=== PATIENT | male | born 1950 | race Caucasian/White ===

== ENCOUNTER 2019-07-30 11:24 | Inpatient (IN) | payer OTHER ==
[~2019-07-30] VITALS: Ht 172.7 cm; Wt 92.0 kg
[2019-07-30 11:25] VITALS: BP 124/77
[2019-07-30 12:09] LABS: ABSOLUTE NEUTROPHILS 3.1 thou/uL (1.4-8.2); BASOPHILS 0.9 % (0.0-2.0); EOSINOPHILS 1.3 % (0.0-3.0); HEMATOCRIT 43.2 % (42.0-52.0); HEMOGLOBIN 14.6 gm/dL (14.0-18.0); LYMPHOCYTES 31.6 % (24.0-44.0); MCH 30.2 pg (26.0-34.0); MCHC 33.7 g/dL (28.0-37.0); MCV 89.7 fL (80.0-100.0); MONOCYTES 8.6 % (1.0-8.0); PLATELET COUNT 157 thou/uL (150-400); POLYS 57.6 % (36.0-66.0); RBC 4.82 mil/uL (4.50-6.00); WBC 5.3 thou/uL (4.0-11.0)
[2019-07-30 12:22] LABS: ANION GAP 10 mmol/L (7-16); BUN 8 mg/dL (7-18); CHLORIDE 102 mmol/L (98-107); CO2 26 mmol/L (21-32); CREATININE 0.8 mg/dL (0.7-1.3); GLUCOSE 93 mg/dL (74-106); POTASSIUM 4.2 mmol/L (3.5-5.1); SODIUM 138 mmol/L (136-145)
[2019-07-30 12:27] LABS: ALBUMIN 4.1 g/dL (3.4-5.0); DIRECT BILIRUBIN 0.2 mg/dL (<0.1-0.2); LIPASE 46 U/L (73-393); SGOT 31 U/L (15-37); SGPT 38 U/L (30-65); TOTAL BILIRUBIN 1.2 mg/dL (<0.1-1.0); TOTAL PROTEIN 7.6 g/dL (6.4-8.2)
[2019-07-30 12:28] LABS: SALICYLATE < 2.8 mg/dL (2.8-20.0)
--- NOTE | 2019-07-30 13:48 | NUR ---
PT. TOLERATED CARDIOVERSION. PT. DOCUMENTATION TO BE FOUND WITH MODERATE SEDATION CHARTING.
[2019-07-30 14:01] LABS: URINE BILIRUBIN NEGATIVE (Negative); URINE BLOOD NEGATIVE (Negative); URINE CLARITY CLEAR; URINE COLOR YELLOW; URINE GLUCOSE-RANDOM* NEGATIVE (Negative); URINE KETONES NEGATIVE (Negative); URINE LEUKOCYTES-REFLEX NEGATIVE (Negative); URINE NITRITE-REFLEX NEGATIVE (Negative); URINE PROTEIN (DIPSTICK) NEGATIVE (Negative); URINE UROBILINOGEN 0.2 E.U./dl (0.2-1.0)
[2019-07-30 14:12] LABS: AMP/METHAMP Negative (Negative); BARBITURATES Negative (Negative); BENZODIAZEPINES POSITIVE (Negative); COCAINE Negative (Negative); METHADONE Negative (Negative); OPIATES Negative (Negative); PCP Negative (Negative)
[2019-07-30 14:17] VITALS: BP 120/68
[2019-07-30] MEDS ORDERED: ACETAMINOPHEN325 M1 PO (15:43)
[2019-07-30] MEDS ORDERED: ALPRAZOLAM XR3 MG PO ×2 (15:45→15:46)
[2019-07-30] MEDS ORDERED: AMITIZA 24 MCG24 MC1 PO (15:48)
[2019-07-30] MEDS ORDERED: ST. JOSEPH ASPI81 MG PO (15:49)
[2019-07-30] MEDS ORDERED: LIPITOR 20 MG T20 M1 PO (15:50)
[2019-07-30] MEDS ORDERED: COLACE100 MG PO (15:50)
[2019-07-30] MEDS ORDERED: FIBER LAX625 MG PO (15:52)
[2019-07-30] MEDS ORDERED: KETOCONAZOLE15 GM TOP (15:53)
[2019-07-30] MEDS ORDERED: LATANOPROST 0.2.5 ML EA. EYE (15:55)
[2019-07-30] MEDS ORDERED: LEVETIRACETAM500 M1 PO (15:56)
[2019-07-30] MEDS ORDERED: LOPRESSOR50 MG PO (15:59)
[2019-07-30] MEDS ORDERED: OLANZAPINE15 M1 PO (16:01)
[2019-07-30] MEDS ORDERED: ONDANSETRON HCL4 M2 PO (16:03)
[2019-07-30] MEDS ORDERED: PROTONIX40 M2 (16:04)
[2019-07-30] MEDS ORDERED: MIRALAX119 GM PO (16:05)
[2019-07-30] MEDS ORDERED: SERTRALINE HCL100 MG PO (16:06)
[2019-07-30] MEDS ORDERED: THROAT SPRAY177 M1 PO (16:08)
[2019-07-30] MEDS ORDERED: CARAFATE 1 GM TA1 G1 PO ×2 (16:10→16:11)
[2019-07-30] MEDS ORDERED: FLOMAX0.4 MG PO (16:13)
[2019-07-30] MEDS ORDERED: TIMOLOL MALEATE5 M2 EA. EYE (16:14)
[2019-07-30] MEDS ORDERED: TRAMADOL 50 MG50 MG PO (16:16)
[2019-07-30] MEDS ORDERED: TRAZODONE HCL100 MG PO (16:17)
[2019-07-30] MEDS ORDERED: B12 ACTIVE1000 MCG PO (16:19)
[2019-07-30] MEDS ORDERED: OSTERA TABLET1 EAC1 PO (16:20)
[2019-07-30 17:03] VITALS: BP 133/75
--- NOTE | 2019-07-30 18:23 | NUR ---
1730 PATIENT NEW ADMIT FROM ER FOR PANIC ATTACKS AND SOME CONTIPATION PROBLEMS. PATIENT STATES HE HAS LOST HIS INTEREST IN LIFE DUE TO NOT BEING ACTIVE. 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 PATIENT IS NOT VERY ACTIVE AND IS , PATIENT A SEIZURE FOR THE FIRST TIME 3 MONTHS AGO. PATIENT WAS VERY ANXIOUS AND PACED BACK AND FORTH UNTIL THE ATIVAN 0.[address] BLACK. DR LAUREN CAME AND SAW PATIENT AND GAVE ME ORDERS FOR OTHER MEDICATION. PATIENT DECLINED THE ENEMA AND STATES HE WILL WAIT FOR DOCUSATE AT 2100. PATIENT WAS GIVEN ATIVAN 0.5 MG [id number]. PATIENT IS VERY PLEASANT BUT NEEDS ENCOURAGEMENT TO BE MORE ACTIVE AND FIND OUTSIDE THINGS TO DO.
[2019-07-30 20:16] VITALS: BP 95/70
--- NOTE | 2019-07-31 00:31 | NUR ---
Care assumed of patient at 1915: Patient sitting on bed at start of shift. Patient alert and oriented x4. Patient reporting his anxiety as a 03/29. Requesting "that little pill". Educated patient regarding PRN Ativan available. Notified patient he had received previous dose around 1800 and that he could receive it every 6 hours. Patient sitting quietly in bed. No restlessness or obvious signs of anxiety observed. Patient denies pain or discomfort. Denies SI/HI/AH/VH. No s/s of delusional or paranoia behaviors. Patient obsessive about his laxative medication. Education provided with HS medication administration. Patient received scheduled Miralax and Colace with HS medication. Took HS medication whole without difficulty. Declined HS snack. Patient denies any depression at this time. Patient was able to fall asleep without difficulty. Patient did report to the nurses station around 2230 requesting his PRN Ativan. Notified patient that medication was not due at this time. Nurse offered to speak with patient regarding his anxiety. He politely declined, stated he would go back to bed. Nurse followed up 10 minutes later and patient is sleeping soundly in his bed.
[2019-07-31 11:31] VITALS: BP 122/68
--- NOTE | 2019-07-31 16:59 | NUR ---
ELLIOTT spoke with Yolie, a nurse for [facility]. She said pt has resided at that facility for 1 year, and in that year he has gone to the hospital over 20 times. According to her, his family reports that he drug seeks for especially Xanax. She said his son stopped pt from drug seeking at [facility] and [facility] as a result. He sees Dr. Schafer at [facility]. Pt says that he feels constipated; his med doctor was on the floor so SW and pt relayed that info to her. She said pain brings on his panic attacks. SW team will continue to follow pt during his stay on this unit.
[2019-07-31 20:21] VITALS: BP 104/66
--- NOTE | 2019-07-31 20:31 | NUR ---
HAS BEEN ATTENDING GROUPS WITH PROMPTING THIS SHIFT. USES ROLLER WALKER AND AMBULATING INDEPENDENTLY IN HALLWAYS GAIT STEADY WITH ASSISITVE DEVICE. PREOCCUPIED WITH HAVING A BM STATING "I NEED TWO OF THOSE RED PILLS SHE ONLY GAVE ME ONE LAST NIGHT AND NOTHING HAPPENED. BS X4-ABDOMEN SOFT,NO DISTENSON NOTED DURING AM PHYSICAL EXAM/ASSESSMENT.DR. JOHN NOTIFIED OF REPORTED CONSTIPATION AND LACTULOSE 20GM GIVEN ALONG WITH ALREADY SCHEDULED MIRALAX AND COLACE. INCREASED WATER INTAKE AND AMBULATION IN HALLWAYS ENCOURAGED. DID REPORT 4-5 LOOSE BM'S BY 1930. REPORTING SOME GENERALIZED ABDOMINAL PAIN THIS AM REFUSED TRAMADOL WHEN OFFERED AT 0900 STATING INCREASES HIS CONSTIPATION-TYLENOL 650MG PO PRN ADMINISTERD AT APPROX 1400 WITH VERBALIZED FAIR RESPONSES. DENIES SI/SH/HI-DOES REPORT ANXIETY RATED A 8/9 ON 1-10 SCALE AND ATIVAN 0.5MG GIVEN PO PRN AT APPROX. 0830 AND REPEATED AT 1430 PRN WITH VERBALIZED GOOD RESULTS-ANXIETY RATED A 4 AFTER ADMINISTRATION. APPETITE FAIR.
--- NOTE | 2019-08-01 01:19 | NUR ---
ASSUMED CARE ON 07/31/19 @ 19:20, IN ROOM, LYING IN BED. COOPERATES WITH ASSESSMENT,HRRR, LUNGS CTA, ABD N X 4 Q, REPORTS X4 LOOSE BM AFTER RECEIVING LACTULOSE AT NOON. DENIES SI, HI, AH, VH. ORIENTED X 2 TO PERSON AND DATE. DENIES DEPRESSION, ACKNOWLEDGES ANXIETY, RATES 6/10. AMBULATES WITH A WALKER. BED IN LOW POSITION, WILL CONTINUE TO MONITOR Q 12 MINUTES FOR PATIENT SAFETY.
[2019-08-01 02:48] VITALS: BP 104/66
--- NOTE | 2019-08-01 06:04 | NUR ---
slept 10.4 hours
--- NOTE | 2019-08-01 07:30 | NUR ---
Assumed care of patient this am. Patients affect is blunted. Patient denies pain. Patient denies hi/si. Patient takes medications whole with fluids. Patient ambulates with walker. Patient is concerned about his bowels. Patient states that his anxiety is better. Patient showered this am. Patients assessment shows clear breath sounds, active bowel sounds, and s1 s2 heard with auscultation.
[2019-08-01 08:00] VITALS: BP 148/84
[2019-08-01 09:06] VITALS: BP 148/84
[2019-08-01 19:23] VITALS: BP 124/79
[2019-08-01 22:35] VITALS: BP 124/79
--- NOTE | 2019-08-02 02:50 | NUR ---
1450 AM RESUMMED CARE FROM DAY SHIFT, PATIENT IN DAY ROOM WATCHING TV. PATIENT STARTED TO GET ANXIOUS AROUND MEDICATION TIME, PATIENT TOOK MEDICATION WITHOUT INCIDENCE. PATIENT COOPERATIVE DENIES SI/HI WILL CONTINUE TO MONITOR PATIENT FOR SAFETY AND BEHAVIORS.
[2019-08-02 08:00] VITALS: BP 150/89
--- NOTE | 2019-08-02 11:10 | NUR ---
ELLIOTT faxed updates to [facility] for pt to [phone]. ELLIOTT team will continue to follow pt during his stay on this unit.
--- NOTE | 2019-08-02 11:22 | EKG ---
[facility] [place] [address] ELECTROCARDIOGRAM REPORT Name: GEOFFREY GALLARDO Room #: [facility]- ADM IN M.R.#: [id number] Admission: 07/30/19 Attend Phys: Yasemin Alegre MD Discharge: Date of : 50 Report #: [id number] THIS REPORT FOR: cc: Gianfranco Zavala Ryan D. DO Couchonnal, Luis F. 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
[2019-08-02 13:16] VITALS: BP 150/89
[2019-08-02 19:30] VITALS: BP 124/67
--- NOTE | 2019-08-02 19:39 | NUR ---
Assumed care of patient this am. Patient slightly anxious. Patient denies pain. Patient denies hi/si. Patients affect is flat. Patient requests laxatives for constipation. Patient educated on the use and misuse of laxatives. Patient expresses understanding. Patients assessment shows clear breath sounds, active bowel sounds, and s1 s2 heard with auscultation. Will continue to monitor.
--- NOTE | 2019-08-02 23:48 | NUR ---
ASSUMED CARE ON 08/02/19 @ 19:15, REPORT RECEIVED FROM OFFGOING DAY SHIFT NURSE. SITTING IN THE DAY ROOM WATCHING TV AND SOCIALIZING WITH PEERS. FLAT AFFECT NOTED. COOPERATES WITH ASSESSMENT, VSS, FOCUSED ON CONSTIPATION AND ANXIETY ABOUT MEDICATION. REPORTS CHRONIC PAIN FROM OPEN HEART SURGERY, IN HIS CHEST AND SHOULDER RATED @ 5/10. TYLENOL 650 PROVIDED FOR PAIN @ 2100. COMPLAINS ABOUT CONSTIPATION, ALTHOUGH ACHNOWLEDGES HAVING A BM TODAY, CHARACTERIZES THE BOWEL MOVEMENT A HARD FORMED MUSHY STOOL. PATIENT ASKED TO NOT FLUSH TOILET NEXT TIME HE HAS A BM FOR NURSING STAFF TO EVALUATE, PATIENT AGREED. REPORTS WORRY ABOUT HIS MEDICATIONS. EDUCATION PROVIDED REGARDING NAME OF MEDS AND THEIR USE, PATIENT VERBALIZED UNDERSTANDING. ALSO REPORTED SADNESS, DEPRESSION REGARDING HIS FEAR OF DYING. DENIES SI, HI, A/H, V/H. TOOK MEDS WHOLE WITH WATER, RETIRED TO BED, AND ALLOWED EYEDROPS TO BE INSTILLED. WILL CONTINUE TO MONITOR Q 12 MINUTES FOR PATIENT SAFETY.
[2019-08-03 03:05] VITALS: BP 124/67
--- NOTE | 2019-08-03 06:01 | NUR ---
SLEPT 7.6 HOURS
[2019-08-03 06:59] LABS: ABSOLUTE NEUTROPHILS 2.2 thou/uL (1.4-8.2); BASOPHILS 0.9 % (0.0-2.0); EOSINOPHILS 1.9 % (0.0-3.0); HEMATOCRIT 42.4 % (42.0-52.0); HEMOGLOBIN 14.4 gm/dL (14.0-18.0); LYMPHOCYTES 42.4 % (24.0-44.0); MCH 30.5 pg (26.0-34.0); MCV 89.7 fL (80.0-100.0); MONOCYTES 7.6 % (1.0-8.0); PLATELET COUNT 141 thou/uL (150-400); POLYS 47.2 % (36.0-66.0); RBC 4.72 mil/uL (4.50-6.00); RDW 15.2 % (10.5-14.5); WBC 4.6 thou/uL (4.0-11.0)
[2019-08-03 07:18] LABS: CALCIUM 8.6 mg/dL (8.5-10.1); CREATININE 0.9 mg/dL (0.7-1.3); POTASSIUM 4.2 mmol/L (3.5-5.1); TOTAL BILIRUBIN 0.8 mg/dL (<0.1-1.0); TOTAL PROTEIN 6.9 g/dL (6.4-8.2)
[2019-08-03 08:42] VITALS: BP 150/89
[2019-08-03 10:22] VITALS: BP 133/82
--- NOTE | 2019-08-03 18:02 | NUR ---
1800 RESUMMED CARE FROM OVERNIGHT SHIFT AT 0648, PATIENT UP IN DAY ROOM WAITING FOR BREAKFAST. PATIENT ATE WELL TOOK MEDICATION WITHOUT INCIDENCE, PATIENT DOES ASK ABOUT CONSTIPATION MEDICATION. PATIENT ASKED FOR TYLENOL AND 1630 FOR HEADACHE, TYLENOL WAS GIVEN WITH 1700 MEDICATION. PATIENT QUIET COOPERATIVE, PARTICIPATED IN GROUPS. PATIENT DENIES SI/HI/KASPER AT PRESENT WILL CONTINUE TO MONITOR PATIENT FOR BEHAVIORS AND SAFETY.
[2019-08-03 19:15] VITALS: BP 124/59
--- NOTE | 2019-08-03 23:34 | NUR ---
Care assumed of patient at 1915: Patient sleeping in bed at start of shift. Easily aroused. Poor eye contact made, appears anxious, fixated on needing to have a bowel movement. Patient had a loose BM during the day shift. Patient did report chronic abdominal pain but declined PRN Tylenol available. Educated patient regarding multiple stool softeners received, having multiple loose bowel movements and how it can effect the muscles in his abdomen. Patient educated with HS medication and scheduled Colace administered. Took HS medication with prune juice per his request. Patient alert and oriented to person only. Patient reports anxiety 11/27 due to feeling that he needs to have a BM. Denies depression. Denies SI/HI/AH/VH. Patient declined HS snack. Patient up ad tegan with walker to the bathroom with steady gait and good balance. Patient has isolated self and been withdrawn this evening. Patient encouraged to come to dayroom but declined. Patient asked to sit up in bed for HS medication but would not or could not follow one step direction. Seemed resistant on participating in nursing assessment. Patient has been sleeping most of the shift thus far.
[2019-08-04 07:00] VITALS: BP 122/84
--- NOTE | 2019-08-04 10:35 | NUR ---
ASSUMED CARE AT 0700 THIS MORNING. PT. UP FOR BREAKFAST IN THE DINING ROOM. HE CONTINUES TO BE FOCUSING ON THIS BOWELS. HE STARTED ASKING FOR PRUNE JUICE FOR SNACK. HE TOOK HIS MEDICATIONS WITHOUT DIFFICULTIES. HE AT WELL AND SAT N THE UNIT WATCHING TELEVISION THIS MORNING. HE HAS A BLAND, FLAT AFFECT. HE IS COOPERATIVE THOUGH WITH STAFF. HE DOES NOT SEEM TO TALK TO ANYONE WHILE ON THE UNIT, BEING ISOLATIVE INSTEAD. WILL ONLY INTERACT UPON APROACH ONLY.
[2019-08-04 11:10] VITALS: BP 122/84
[2019-08-04 11:34] VITALS: BP 122/84
[2019-08-04 21:02] VITALS: BP 123/74
--- NOTE | 2019-08-04 23:17 | NUR ---
Care assumed of patient at 1915: Patient seated on couch in dayroom, watching TV, at start of shift. Patient presents with flat affect, depressed mood. Patient alert and oriented x4. Calm, pleasant and cooperative. Denies anxiety or depression. Reports that he was anxious earlier in the day due to having chest pain but he feels much better now. Denies pain or discomfort. Patient interacting with staff and peers. Did not isolate self to his room and bed this shift. Patient has not had any thoughts fixating on bowels this shift. Patient ate 100% HS snack. Took HS medication whole without difficulty. Patient observed smiling once while speaking with a peer. Mood appears to have improved compared to previous nights. Patient able to retire to bed at a reasonable hour and has been resting quietly since.
[2019-08-05 07:36] VITALS: BP 138/78
[2019-08-05 12:34] VITALS: BP 138/78
--- NOTE | 2019-08-05 14:17 | NUR ---
1415 RESUMMED CARE FROM OVERNIGHT SHIFT THIS AM, PATIENT IN DAY ROOM QUIET WAITING FOR BREAKFAST. PATIENT ATE BREAKFAST AND TOOK MEDICATION WITHOUT INCIDENCE. PATIENT COMPLAINED OF HAVING PAIN DOWN HIS LEFT BUTTOCKS TO LOWER LEFT THIGH. I GAVE PATIENT TYLENOL 650 MG FOR PAIN, HE RATES HIS PAIN ABOUT 3. PATIENT PARTICIPATED IN GROUPS QUIET COOPERATIVE, DOES OCCASSIONLY WALKS TO ROOM AND BACK TO DAYROOM. PANTIENT'S ANXIETY IS GETTING BETTER, HE DENIES SI/HI OR AH AT PRESENT. WILL CONTIUE TO MONITOR PATIENT FOR BEHAVIORS AND SAFETY.
[2019-08-05 20:19] VITALS: BP 110/58
--- NOTE | 2019-08-06 05:32 | NUR ---
ASSUMED CARE OF THIS PATIENT AT 1900 FOR FUR STYLIST. AFFECT FLAT, ANXIOUS. MOOD DEPRESSED. TOLD THIS NURSE HE HAD 2 BMS YESTERDAY AND ONE WAS LOOSE. COLACE HELD. THEN WOKE UP ABOUT 5AM AND TOLD STAFF HE HASN'T HAD A BM IN SEVERAL DAYS. SEEMS A LITTLE BOWEL FIXATED. PLEASANT AND COOPERATIVE WITH ASSESSMENT PROCESS AND MEDS. NO APPARENT DISTRESS. WILL CONTINUE TO MONITOR
[2019-08-06 08:44] VITALS: BP 138/75
--- NOTE | 2019-08-06 08:49 | NUR ---
ASSUMED CARE AT 0700 THIS MORNING. PT. DID NOT GET UP FOR BREAKFAST. THIS RN WENT TO PT. ROOM TO GIVE MORNING MEDICATIONS. HE WAS LAYING BED AND REMARKED HE COULD NOT GET UP THIS MORNING HIS JOINTS ARE HURTING. I INFORMED HIM THAT THERE IS GABAPENTIN IN THE MORNING MEDICATIONS AND THIS SHOULD HELP HIM WITH THE PAIN HE CLAIMS HE HAS. HE TOOK THE MEDICATIONS WITHOUT PROBLEMS NOTED. IT IS DIFFICULT TO GIVE HIM THE EYE DROPS. HE SQUINTS HIS EYES HARD BUT WITH PATIENTS CAN DELIVER THE DROPS. HIS MOOD IS CLOSED AND ATTITUDE ARE CLOSED AT THIS TIME. HE IS UNWILLING TO ATTEMPT TO GET UP OR MOVE AROUND. HE STATED HE NEEDED TO UTILIZE THE RESTROOM BUT WHEN THIS SECOND CHEF ATTEMPTED TO GET HIM UP, HE STATED HE IS UNWILLING TO DO THIS.
--- NOTE | 2019-08-06 11:01 | NUR ---
ELLIOTT contacted the director of infection prevention for [facility] to discuss recommendations and d/c. On her vm it says she will not return until 08/07. ELLIOTT contacted norberto Hart for PM. No answer. Lft msg. ELLIOTT faxed updates on pt to PM. SW team will continue to follow pt during his stay on this unit.
[2019-08-06 11:15] VITALS: BP 138/75
[2019-08-06 19:30] VITALS: BP 99/54
--- NOTE | 2019-08-07 05:06 | NUR ---
Assumed care of pt @ 1899. Pt calm et cooperative this shift. Pt in dayroom with peers watching television at beginning of shift. Was given medications whole et took without difficulty @ 1999. Pt retired to bed shortly thereafter. Ambulates the halls ad tegan with steady gait. VSWNL. Health assessment with no abnormalities noted at present time. Denies SI/HI. Currently resting in bed with eyes closed. Will continue to monitor per protocol.
[2019-08-07 09:46] VITALS: BP 99/54
--- NOTE | 2019-08-07 10:07 | NUR ---
ASSUMED CARE AT 0700 THIS MORNING. PT. UP, DRESSED AND ON THE UNIT. HE CONTINUES TO LOOK UNKEMPT. WILL ATTEMPT TO GIVE HIM A SHOWER TODAY. TOOK HIS MEDS WITHOUT PROBLEMS. RECEIVED A CALL FROM ROBERT FROM [facility] ([phone]) FOR AN UPDATE WHICH WAS PROVIEDED TO HER. HE AT WELL THIS MORNING. HE IS COMPLAINING OF THIS ABDOMEN HURTING "A LOT". I WITHHELD HIS MIRALAX DUE TO THIS. HE ALSO REPORTED HAVING 2 OR 3 BM'S ON THE EVENING OF 08/05 AND 5 TO 6 BM'S ON 08/06. HE THEN ASKED FOR PRUNE JUICE WHICH I PROMPTLY INFORMED HIM I DO NOT THINK HE NEEDS THAT AT THIS TIME.
[2019-08-07 10:55] VITALS: BP 121/73
--- NOTE | 2019-08-07 14:06 | NUR ---
RT Progress Note- Patient continues to participate in 1-2 recreational therapy groups each day. Affect continues to be flat, though patient engages socially when prompted. At times patient displays anxiety surrounding his bowels or various other medical aches and pains. Continue current goal.
--- NOTE | 2019-08-07 14:12 | NUR ---
SW contacted Arlyn Barr (Chemical Operations Specialist), Hedy Bond (DON), and Flori Harley with [facility] to arrange discharge for pt. No answer from any above. Lft msgs for all. SW team will continue to follow pt during his stay on this unit.
[2019-08-07 19:45] VITALS: BP 98/58
--- NOTE | 2019-08-08 01:09 | NUR ---
Care assumed of patient at 1915: Patient laying in bed at start of shift. Patient awake. Patient alert and oriented x3 with occasional confusion and forgetfulness. Patient presents with blunted affect, reports increased anxiety due to not having a bowel movement. Patient educated about having several bowel movements previous day. Educated about the amount of stool softeners and laxatives that he receives. Reports abdominal pain. Educated about how the muscles in his abdomen are probably sore due to having several loose bowel movements. Patient resistive to any education provided. Offered several coping mechanisms to calm his anxiety. Patient quick to say that none of them work or help him. Patient irritable during assessment. Giving quick, short answers to assessment questions. Denies SI/HI/AH/VH. Reports anxiety as 7/10 but declined PRN Ativan "because that doesn't work". Patient isolating self to his room this shift. Having difficulty sleeping. Did report headache, abdominal pain, shoulder pain and knee pain at 0030. PRN Tylenol administered. Patient educated on all medications administered at HS. Patient did state he was tired. Patient encouraged to go back to bed and attempt to sleep. Patient complied and is laying in bed at this time.
[2019-08-08 07:30] VITALS: BP 136/78
[2019-08-08 07:40] VITALS: BP 136/78
--- NOTE | 2019-08-08 08:18 | NUR ---
PT STATED HE HAS SOME PAIN TO LEFT CHEST OF 10 ON 1-10 SCALE. PT STATED HE WANTS A LAXATIVE, PT HAD X5 LOOSE STOOOLS YESTERDAY. PT STATED HE IS HAVING ISSUES WITH SWALLOWING, PT STATED HE WANTED HIS ANTI-ANXIETY MED BEFORE HE COULD EAT. PT STATED HE WASN'T PASSING GAS. PT IS BREATHING SHALLOW, ENCOURAGED PT TO DEEP BREATH, TAKE SLOW BREATHS IN AND OUT. PT UP WITH WALKER WITH STEADY GAIT.
--- NOTE | 2019-08-08 11:55 | NUR ---
ADM TYLENOL 325MG 2 TABS PO FOR C/O HEADACHE OF 10 ON 1-10 SCALE. PT STATED HE HAS SOME PAIN TO LEFT NECK FROM PREVIOUS CAROTID ENDARTERECTOMY. SEEMS A LITTLE RED TO LEFT SIDE OF NECK. MENTIONED PT TO F/U WITH CARDIOLOGY. PT STATED HE DID AND HAD IT CHECKED LESS THAN A YEAR AGO. MENTIONED TRAMADOL, PT STATED THAT WOULD PROBABLY CONSTIPATE HIM. OFFERED PT HOT TEA, PT DID DRINK SOME AND STATED IT DIDN'T HELP. OFFERED ICE PACK OR WARM PACK, PT STATED ICE PACK PROB. BE OK.
--- NOTE | 2019-08-08 16:38 | NUR ---
ADM TRAMADOL 50MG PO FOR PAIN TO LEFT SIDE OF NECK.
--- NOTE | 2019-08-08 16:42 | NUR ---
PT STATED PAIN IS 10 ON 1-10 SCALE.
[2019-08-08 19:40] VITALS: BP 107/48
[2019-08-08 20:46] VITALS: BP 107/48
--- NOTE | 2019-08-08 22:59 | NUR ---
PATIENT IS A/0X3. HE TOOK HIS HS MEDS WHOLE WITH WATER. PATIENT ASSESSMENT WNL. PATIENT'S PULSE AT 48. PATIENT STATES IT IS NORMAL FOR HIS PULSE TO RUN LOW 48. PATIENT IS ASYMPTOMATIC. TYLENOL 650MG GIVEN WITH HS MEDS D/T C/O LEFT NECK SORENESS. SCORED 3 OUT OF 10 ON PAIN SCALE. NO EDEMA. PATIENT DID HAVE LARGE FORMED BM TONIGHT. HELD HIS DOCUSATE NA AT HS D/T HE HAD 5 LOOSE STOOLS YESTERDAY. PATIENT IS CALM AND COOPERATIVE TONIGHT. HE HAS BEEN IN BED SINCE 1999. WILL CONTINUE TO MONITOR.
--- NOTE | 2019-08-09 05:23 | NUR ---
PATIENT UP AND DRESSED FOR THE DAY. SITTING IN DINING ROOM READING OVER HIS NOTES ON HOW TO FEEL BETTER. PATIENT FIXATED ON BOWELS AND ANXIOUS ABOUT GETTING CONSTIPATED. PATIENT REQUESTING MED DURAN TO GET STARTED ON FOR BOWELS. GAVE HIM HIS MIRALAX NOW AND TOLD HIM HE NEEDED TO WAIT TILL BREAKFAST FOR LACTULOSE. NO PRN ORDER FOR ATIVAN AT THIS TIME. PATIENT SEEMS CALM JUST FIXATED ON HIS BOWEL SITUATION. PATIENT CALMED MORE ONCE HE WAS ABLE TO HAVE HIS MIRALAX.
[2019-08-09 09:09] VITALS: BP 123/63
--- NOTE | 2019-08-09 11:31 | NUR ---
Nutrition: Assessed for LOS. Admit: bipolar. Visited pt in room. Up until yesterday, pt eating extremely well. From 08/03-08/07, pt w/ 70% meal average per 15 recorded meals. Often eating 90-100% of a couple meals daily. Starting on 08/08, pt refused all meals and refused today. Reports food hasn't seemed as appealing and he was dealing w/ "stomach problems" yesterday. Per AM nsg note, pt has been fixated on bowels; anxious about getting constipated. 5 loose stools reported on 08/07, w/ 2 BMs 08/08. Docusate Na held last night, but he did receive AM miralax. CBW 203#, up +3# since admit. RD shared concern for so many skipped meals. Pt feels w/ improved stomach issues, he should do better again. Reviewed future meals to ensure pt likes all options coming. Identified alternative protein options too, plus suggested daily Ensure in case sporadic intake continues. Pt interested in Ensure Enlive w/ lunch. Suspect PO intake to improve in the next 1-2 days. Keep as low nutrition risk given only 1 day of low intake, no wt loss. Check back next week for po changes.
--- NOTE | 2019-08-09 16:40 | NUR ---
UPON INITAL ASSESSMENT THIS AM IS NOTED TO BE VERY ANXIOUS-SOMATICALLY PREOCCUPIED-APPROACHED THIS NURSE 2-3 TIMES IN COURSE OF 10 MINUTES TO ASK ABOUT LAXATIVES BOWELS,ANXIETY MEDS ETC. UNABLE TO BE REFOCUSED OR REDIRECTED. WAS NOTABLY CALMER AFTER SCHEDULED AM ANXIETY MEDS AND WAS ABLE TO PARTICIPATE IN UNIT GROUPS WITH GOOD LEVEL OF PARTICIPATION. DID HAVE SHOWER AND SHAVE AND STATES "FELT GOOD" AFTER THIS. LARGE LOOSE BM THIS AM-VS WNL. GAIT STEADY WITH USE OF ROLLER WALKER. DENIES SI/SH/HI
--- NOTE | 2019-08-09 17:08 | NUR ---
PT. SHOWERED AND SHAVED THIS AFTERNOON. PUT ON NEW CLOTHES. HE ALSO WAS SHAVED. CLOTHES WASHED AND DRIED. BED CHANGED.
--- NOTE | 2019-08-09 17:31 | NUR ---
ELLIOTT received a vm from Hedy with [facility] stating that she did not need to do an assessment of pt and to let her know when SW will be sending him. ELLIOTT left a vm for Hedy stating that she will arrange for transportation to occur on 08/10 @1300. ELLIOTT contacted [employer] [facility] and arranged for transportation to occur tomorrow at 1300. Trip# [id number]. SW team will continue to follow pt during his stay on this unit.
[2019-08-09 19:36] VITALS: BP 100/37
[2019-08-09 22:36] VITALS: BP 100/37
--- NOTE | 2019-08-10 01:38 | NUR ---
Pt. was in bed laying on side at start of shift. Pt. voiced no complaints. At med time patient took meds whole with thin water. NO choking or coughing noted after swallowing. Pt. currently denies pain. Pt. continues resting with eyes closed. Respirations even and non-labored. Pt. appears to be sleeping.
[2019-08-10 09:26] VITALS: BP 127/77
[2019-08-10] MEDS ORDERED: LOPRESSOR25 PO (11:33)
[2019-08-10] MEDS ORDERED: TRAMADOL 50 MG50 MG PO (11:34)
[2019-08-10] MEDS ORDERED: ZOLOFT 50 MG TA50 M1 PO (11:35)
[2019-08-10] MEDS ORDERED: TRAZODONE HCL100 MG PO (11:36)
[2019-08-10] MEDS ORDERED: OLANZAPINE ODT5 MG PO (11:37)
[2019-08-10] MEDS ORDERED: LORAZEPAM 1 MG T1 MG PO (11:38)
[2019-08-10] MEDS ORDERED: LACTULOSE20 GM/30 M PO (11:38)
--- NOTE | 2019-08-10 13:24 | NUR ---
ELLIOTT D/C Note ELLIOTT contacted [facility] and confirmed they will be filling pt's meds as he is in assisted living. They said they do not have a psychotherapist and that pt is mobile and has a car so he goes places. ELLIOTT discussed with pt [facility] in [place] and went over the requirements and paperwork he needs. ELLIOTT also gave pt a handout for him to have with this information on it. ELLIOTT asked him to complete walk-in on 08/13/19. Pt said he understood. ELLIOTT faxed discharge docs to both [facility] and [facility]. No other needs for SW team to complete at this time.
--- NOTE | 2019-08-10 15:12 | NUR ---
REPORT CALLED TO SUSANA AT [facility]-RX FAXED TO [facility] PER FACILITY REQUEST -[phone]. RX,DC ORDERS,LABS AND H/P DC SUMMARY SENT WITH TRANSPORT STAFF TO BE GIVEN TO PM STAFF UPON ARRIVAL. DC INSTRUCTIONS REVIEWED WITH PT HE STATES UNDERSTANDING AND DENIES QUESTIONS. REPORTING INCREASED ANXIETY R/T PENDING DC THROUGHOUT AM AND ONETIME ATIVAN 1MG GIVEN PO AT APPROX. 1200 WITH PT VERBALIZED GOOD RESULTS-VALUABLE ENVELOPE RETRIEVED FROM SECURITY AND SENT WITH PT ALONG WITH ALL PERSONEL BELONGINGS. PT ALERT AT TIME OF DC-DENIES SI/SH/HI-DOES STATE FEELS NERVOUS BUT RATES ANXIETY AT TIME OF DC A 2 ON 1-10 SCALE-RUMINATING ABOUT NOT BEING ABLE TO GET MEDS AT FACILITY BUT DOES RESPOND TO SUPPORT FROM NURSING STAFF. DC AT APPROX 1320 VIA WC ACCOMPNIED BY NURSING STAFF AND TRANSPORT STAFF.
--- NOTE | 2019-08-13 09:12 | D ---
[facility] [place] [address] DISCHARGE SUMMARY Name: GEOFFREY GALLARDO Room #: 523A-A [facility] IN M.R.#: [id number] Admission: 07/30/19 Attend Phys: Uriah Hilton DO Discharge: 08/10/19 Date of : 50 Report #: [id number] THIS REPORT FOR: cc: Gianfranoc Zavala Ryan D. DO Kerstein, Andrew H. DO ~ THIS REPORT FOR: //name// CC: Uriah Zavala DATE OF SERVICE: 08/10/2019 INPATIENT PSYCHIATRIC DISCHARGE SUMMARY ATTENDING PHYSICIAN: Uriah Hilton DO. MANAGER CLINICAL AT THE TIME OF DISCHARGE: Cara Fontaine MD DISCHARGE DIAGNOSES: As follows: Major depressive disorder, recurrent, severe degree with psychotic features; generalized anxiety disorder. MEDICAL COMORBIDITIES: As follows: Hypertension, hyperlipidemia, benign prostatic hypertrophy, gastroesophageal reflux disease, history of seizure, obesity, BMI 31. DISCHARGE PLAN: He is discharging back to the [facility] [place]. He is in assisted living there. He is seen by Dr. Hooper's group. Psychiatric and medical care to be performed by that facility. I would recommend the patient have a dedicated psychiatric configuration management consultant as shortly after he was discharged, I spoke to the nurse practitioner for [facility] and the patient to my surprise has a history of Clozaril therapy as well as seeing Dr. Poly Dixon. The patient should be seen within 2 weeks by the primary care provider. I did give a sign out via telephone to Gina Govea again as a primary care nurse practitioner. DISCHARGE MEDICATIONS: As follows; metoprolol 12.5 mg p.o. b.i.d. for hypertension, hold if pulse less than 60 or systolic blood pressure less than 100; tramadol 50 mg p.o. q. 6 p.r.n. for breakthrough pain 6-10; sertraline 50 mg p.o. b.i.d. for depression; trazodone 150 mg p.o. at bedtime for insomnia; olanzapine 5 mg p.o. at 0900, 1500, 2100 for psychosis and anxiety; lorazepam 1 mg p.o. b.i.d. before meals for generalized anxiety; lactulose 20 g p.o. daily for bowel motility; aspirin 81 mg p.o. daily for cardioprotection; atorvastatin 20 mg p.o. at bedtime for hyperlipidemia; docusate 100 mg p.o. b.i.d. for bowel motility; latanoprost 0.005% each eye at bedtime; Keppra 500 mg p.o. b.i.d. for seizure disorder; pantoprazole 40 mg p.o. b.i.d. for GERD; sucralfate [address] [address] DISCHARGE SUMMARY Name: GALLARDOGEOFFREY PERALTA Room #: 523A-A [facility] IN M.R.#: [id number] Admission: 07/30/19 Attend Phys: Uriah Hilton DO Discharge: 08/10/19 Date of : 50 Report #: [id number] p.o. a.c. and at bedtime for refractory GERD; tamsulosin 0.4 mg p.o. at bedtime for BPH; timolol maleate 5 mL drops daily each eye b.i.d. for glaucoma and vitamin B12 1000 mcg p.o. daily for supplementation. LABORATORY DATA: Significant laboratories this admission, hematology last done on 08/03/2019 H and H 14.4 and 42.4, white count 4.6, platelets 141,000 so slightly thrombocytopenic. Chemistry was within normal limits including sodium 140, potassium 4.2, chloride 103, bicarbonate 31, BUN 12, creatinine 0.9, glucose 99, AST 19, ALT 35, alkaline phosphatase 75, albumin 4.0. Urinalysis was grossly normal. Toxicology for this admission was negative except for positive benzodiazepines. REASON FOR ADMISSION: Back on 07/30/2019, this 69-year-old male presented to the ED complaining of throat, chest and abdominal pain that had been off and on for a while. Symptoms were progressively worse for about 2 weeks. EMS reported the half-way staff says that he has been calling 911 several times a day for the past 1-2 weeks on multiple occasions, had been transferred to [facility], had a "full workups" for both abdominal and chest pain, which have all been normal. Staff at facility called her today to speak on possible geropsych admission for chronic and phantom pains. HOSPITAL COURSE: The patient was admitted to Geriatric Psychiatry Unit. I was on vacations for several days. He was taken care of by Dr. Alegre. The patient had an EKG in beginning, which showed QTC 431, rate 65, [place] interval 173, sinus rhythm with right bundle branch block. In addition, early interventions by Dr. Alegre included Ativan 1 mg 4 times a day. He was on Zyprexa Zydis 15 mg at bedtime and initially he had gabapentin 300 mg b.i.d., which was then discontinued. On 08/06/2019, the patient was doing okay, but was resisting discharge. I took over the case on the . Several changes were made including discontinuing gabapentin due to questionable duplicity of therapy with Tracee and him being on antipsychotic. Due to anxiety complaints, we decided to spread out the olanzapine. I discontinued the p.r.n. Ativan. The patient waxed and waned in how better or worse he was doing. He has chronic somatization of any anxiety. I also have some concerns if the patient may require a more supportive setting than he has at [facility]. The patient was wanting to return to his current facility and given this, we will give him another shot at it. The patient was advised if he continues with behavior of calling 911 and having unreasonable complaints, he is going to be placed in [facility]. VITAL SIGNS: On the day of discharge vital signs were as follows: Temperature 36.7, pulse 100, respirations 16, BP 127/77, O2 sat 95%. MUSCULOSKELETAL: Slow gait. Normal station. MENTAL STATUS EXAMINATION: This is a well-developed, fairly nourished, [address] [address] DISCHARGE SUMMARY Name: GEOFFREY GALLARDO Room #: 523A-A [facility] IN ..#: [id number] Admission: 07/30/19 Attend Phys: Uriah Hilton DO Discharge: 08/10/19 Date of : 50 Report #: [id number] obese male, appearing stated age. Attention fair. Concentration fair. Speech slow, soft. Thought process linear and goal directed. Thought content focused on concerns about discharge and somatic complaints including chest pain, which again has been chronic and extensively worked up. Memory is not fully tested. Insight limited. Judgment limited. Fund of knowledge at least average range. PROGNOSIS: For this patient is guarded given long psychiatric history and his failure to utilize these supports at the assisted living facility. The patient will need to engage in psychotherapy, which according to Ms. Govea needs to be done at [facility] near him, so either rediscover or comprehensive service where he lives. <ELECTRONICALLY SIGNED> By: Uriah Hilton DO 08/13/19911 13 42 Uriah Hilton DO /nt
== END 2019-08-10 13:30 | DRG 885 ==
LOC: ER 11:24 → SBH 13:55
PROVIDERS: Nurse Practitioner; Psychiatry & Neurology Psychiatry; ADMIT Psychiatry & Neurology Psychiatry
DX: F33.3 Major depressive disorder, recurrent, severe with psychotic symptoms (principal); R07.9 Chest pain, unspecified; F41.9 Anxiety disorder, unspecified; I10 Essential (primary) hypertension; E78.5 Hyperlipidemia, unspecified; N40.0 Benign prostatic hyperplasia without lower urinary tract symptoms; K21.9 Gastro-esophageal reflux disease without esophagitis; K59.00 Constipation, unspecified; E66.01 Morbid (severe) obesity due to excess calories; G40.909 Epilepsy, unspecified, not intractable, without status epilepticus; F39 Unspecified mood [affective] disorder; Z68.31 Body mass index [BMI] 31.0-31.9, adult; Z79.82 Long term (current) use of aspirin; Z79.891 Long term (current) use of opiate analgesic; Z79.899 Other long term (current) drug therapy; Z88.5 Allergy status to narcotic agent; Z88.8 Allergy status to other drugs, medicaments and biological substances
CPT/HCPCS: 10880

== ENCOUNTER 2019-08-17 08:41 | Emergency (ER) | payer OTHER ==
[~2019-08-17] VITALS: Ht 172.7 cm; Wt 88.5 kg
[~2019-08-17 08:41] MED LIST: ACETAMINOPHEN325 M1 PO; ALPRAZOLAM XR3 MG PO; AMITIZA 24 MCG24 MC1 PO; B12 ACTIVE1000 MCG PO; CARAFATE 1 GM TA1 G1 PO; COLACE100 MG PO; FIBER LAX625 MG PO; FLOMAX0.4 MG PO; KETOCONAZOLE15 GM TOP; LACTULOSE20 GM/30 M PO; LATANOPROST 0.2.5 ML EA. EYE; LEVETIRACETAM500 M1 PO; LIPITOR 20 MG T20 M1 PO; LOPRESSOR25 PO; LOPRESSOR50 MG PO; LORAZEPAM 1 MG T1 MG PO; MIRALAX119 GM PO; OLANZAPINE ODT5 MG PO; OLANZAPINE15 M1 PO; ONDANSETRON HCL4 M2 PO; OSTERA TABLET1 EAC1 PO; PROTONIX40 M2; SERTRALINE HCL100 MG PO; ST. JOSEPH ASPI81 MG PO; THROAT SPRAY177 M1 PO; TIMOLOL MALEATE5 M2 EA. EYE; TRAMADOL 50 MG50 MG PO; TRAZODONE HCL100 MG PO; ZOLOFT 50 MG TA50 M1 PO
[2019-08-17] MEDS ORDERED: OLANZAPINE10 M1 PO (09:25)
[2019-08-17 09:57] LABS: ABSOLUTE NEUTROPHILS 3.1 thou/uL (1.4-8.2); BASOPHILS 0.5 % (0.0-2.0); EOSINOPHILS 0.5 % (0.0-3.0); HEMATOCRIT 42.4 % (42.0-52.0); HEMOGLOBIN 14.4 gm/dL (14.0-18.0); LYMPHOCYTES 25.5 % (24.0-44.0); MCH 30.5 pg (26.0-34.0); MCV 89.8 fL (80.0-100.0); PLATELET COUNT 161 thou/uL (150-400); POLYS 66.5 % (36.0-66.0); RBC 4.73 mil/uL (4.50-6.00); RDW 14.9 % (10.5-14.5); WBC 4.7 thou/uL (4.0-11.0)
[2019-08-17 10:01] LABS: ANION GAP 10 mmol/L (7-16); BUN 8 mg/dL (7-18); CALCIUM 9.4 mg/dL (8.5-10.1); CHLORIDE 103 mmol/L (98-107); CO2 28 mmol/L (21-32); CREATININE 0.8 mg/dL (0.7-1.3); GLUCOSE 123 mg/dL (74-106); POTASSIUM 3.9 mmol/L (3.5-5.1); SODIUM 141 mmol/L (136-145)
[2019-08-17 10:10] LABS: ALBUMIN 4.1 g/dL (3.4-5.0); SGOT 34 U/L (15-37); SGPT 44 U/L (30-65); TOTAL BILIRUBIN 1.3 mg/dL (<0.1-1.0); TOTAL PROTEIN 7.2 g/dL (6.4-8.2); TROPONIN-I <0.06 ng/mL (<0.06)
[2019-08-17] MEDS ORDERED: TRAMADOL 50 MG50 MG PO (13:16)
[2019-08-17] MEDS ORDERED: FLOMAX0.4 MG PO (13:16)
[2019-08-17 13:37] LABS: URINE BILIRUBIN NEGATIVE (Negative); URINE BLOOD NEGATIVE (Negative); URINE CLARITY CLEAR; URINE COLOR YELLOW; URINE GLUCOSE-RANDOM* NEGATIVE (Negative); URINE KETONES TRACE (Negative); URINE LEUKOCYTES-REFLEX NEGATIVE (Negative); URINE NITRITE-REFLEX NEGATIVE (Negative); URINE PROTEIN (DIPSTICK) NEGATIVE (Negative); URINE UROBILINOGEN 0.2 E.U./dl (0.2-1.0)
[2019-08-17 15:14] VITALS: BP 130/71
--- NOTE | 2019-08-17 16:34 | EKG ---
[facility] [place] [address] ELECTROCARDIOGRAM REPORT Name: GEOFFREY GALLARDO Room #: DEP [facility].#: [id number] Admission: 08/17/19 Attend Phys: Discharge: 08/17/19 Date of : 50 Report #: [id number] THIS REPORT FOR: cc: Yolie Newman,Yolie Portillo,Brock Simon MD ~ THIS REPORT FOR: //name// [facility] ED Test Date: 2019-08-17 Test Time: 08:42:13 Pat Name: GEOFFREY GALLARDO Department: Room: Gender: Ends Down Checker: SUNITA : 1950 Requested By: Sixto Avila Order Number: [id number] MD: Brock Ceo Measurements Intervals [place] Rate: 76 P: 87 [place]: QRS: -13 QRSD: 161 T: 35 QT: 396 QTc: 446 Interpretive Statements Sinus rhythm Right bundle branch block Compared to ECG 07/30/2019 11:32:21 No significant change Electronically Signed On 08-17-2019 16:33:47 HEADWAITRESS by Brock Coe [email or web address] <ELECTRONICALLY SIGNED> By: Brock Coe MD 08/17/19 1633 D: 02/841 1 Brock Coe MD /DASHAWN
== END 2019-08-17 15:14 | disposition home or self-care (01) ==
LOC: ER 08:41
PROVIDERS: Emergency Medicine
DX: R10.2 Pelvic and perineal pain (principal); R33.9 Retention of urine, unspecified; R07.89 Other chest pain; F31.9 Bipolar disorder, unspecified; F41.0 Panic disorder [episodic paroxysmal anxiety]; F41.9 Anxiety disorder, unspecified; Z88.6 Allergy status to analgesic agent; Z88.1 Allergy status to other antibiotic agents; Z88.5 Allergy status to narcotic agent; Z88.8 Allergy status to other drugs, medicaments and biological substances

== ENCOUNTER 2020-02-14 10:29 | Emergency (ER) | payer OTHER ==
[~2020-02-14] VITALS: Ht 172.7 cm; Wt 72.6 kg
[~2020-02-14 10:29] MED LIST changes: +OLANZAPINE10 M1 PO
[2020-02-14] MEDS ORDERED: FLUVOXAMINE MAL25 MG PO (10:44)
[2020-02-14] MEDS ORDERED: KEPPRA XR500 MG PER TUBE (10:45)
[2020-02-14] MEDS ORDERED: LORAZEPAM0.5 MG/1 M PO (10:49)
[2020-02-14 11:18] LABS: ABSOLUTE NEUTROPHILS 7.1 thou/uL (1.4-8.2); BASOPHILS 0.6 % (0.0-2.0); EOSINOPHILS 0.7 % (0.0-3.0); HEMATOCRIT 35.6 % (42.0-52.0); HEMOGLOBIN 12.1 gm/dL (14.0-18.0); LYMPHOCYTES 10.5 % (24.0-44.0); MCH 31.2 pg (26.0-34.0); MCHC 33.9 g/dL (28.0-37.0); MCV 91.9 fL (80.0-100.0); MONOCYTES 4.4 % (1.0-8.0); PLATELET COUNT 277 thou/uL (150-400); POLYS 83.8 % (36.0-66.0); RBC 3.87 mil/uL (4.50-6.00); RDW 14.1 % (10.5-14.5); WBC 8.5 thou/uL (4.0-11.0)
[2020-02-14 11:28] LABS: CALCIUM 9.4 mg/dL (8.5-10.1); CREATININE 0.8 mg/dL (0.7-1.3); POTASSIUM 3.6 mmol/L (3.5-5.1)
[2020-02-14 11:36] LABS: ALBUMIN 3.3 g/dL (3.4-5.0); TOTAL BILIRUBIN 0.9 mg/dL (0.2-1.0); TOTAL PROTEIN 7.4 g/dL (6.4-8.2)
[2020-02-14] MEDS ORDERED: SEROQUEL 25 MG25 MG PO (16:07)
[2020-02-14] MEDS ORDERED: SEROQUEL 25 MG25 MG PER TUBE (16:07)
[2020-02-14 17:27] VITALS: BP 118/75
--- NOTE | 2020-02-15 08:24 | EKG ---
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: [facility] : 1950 Requested By: Jason Guerrier Order Number: [id number] MD: Vaughn Gaona Measurements Intervals [place] Rate: 91 P: 60 FL: 150 QRS: 11 QRSD: 132 T: 35 QT: 368 QTc: 453 Interpretive Statements Sinus rhythm Right bundle branch block Compared to ECG 08/17/2019 08:42:13 No significant change was found Electronically Signed On 02-15-2020 8:23:58 CDT by Vaughn Gaona [email or web address] <ELECTRONICALLY SIGNED> By: Vaughn Gaona MD, [facility] 02/15/20 0823 1056 1056 Vaughn Gaona MD, [facility] /EPI
== END 2020-02-14 17:27 | disposition home or self-care (01) ==
LOC: ER 10:29
PROVIDERS: Emergency Medicine
DX: F03.91 Unspecified dementia, unspecified severity, with behavioral disturbance (principal); F31.9 Bipolar disorder, unspecified; Z20.828 Contact with and (suspected) exposure to other viral communicable diseases; Z79.899 Other long term (current) drug therapy; Z79.82 Long term (current) use of aspirin; Z88.8 Allergy status to other drugs, medicaments and biological substances; Z88.1 Allergy status to other antibiotic agents; Z91.041 Radiographic dye allergy status; Z88.4 Allergy status to anesthetic agent; Z88.2 Allergy status to sulfonamides

== ENCOUNTER 2020-02-14 23:05 | Inpatient (IN) | payer OTHER ==
[~2020-02-14] VITALS: Ht 172.7 cm; Wt 63.5 kg
[~2020-02-14 23:05] MED LIST changes: +FLUVOXAMINE MAL25 MG PO; +KEPPRA XR500 MG PER TUBE; +LORAZEPAM0.5 MG/1 M PO; +SEROQUEL 25 MG25 MG PER TUBE; +SEROQUEL 25 MG25 MG PO
[2020-02-14 23:07] VITALS: BP 137/74
[2020-02-15 03:34] LABS: URINE BILIRUBIN NEGATIVE (Negative); URINE BLOOD 3+ (Negative); URINE CLARITY SL CLOUDY; URINE COLOR YELLOW; URINE GLUCOSE-RANDOM* NEGATIVE (Negative); URINE KETONES 1+ (Negative); URINE NITRITE-REFLEX NEGATIVE (Negative); URINE PROTEIN (DIPSTICK) NEGATIVE (Negative); URINE SPECIFIC GRAVITY <= 1.005 (1.005-1.035); URINE UROBILINOGEN 0.2 E.U./dl (0.2-1.0)
[2020-02-15 03:35] LABS: URINE LEUKOCYTES-REFLEX 1+ (Negative)
[2020-02-15 03:40] LABS: BACTERIA-REFLEX 1-9 Few /HPF (None Seen); CASTS None Seen /LPF (None Seen); CRYSTALS None Seen /LPF (None Seen); MUCUS None Seen strn/LPF (None Seen); SQUAMOUS None Seen /LPF (0-3); URINE WBC-REFLEX 6-15 Few /HPF (0-5)
[2020-02-15 03:41] LABS: WBC CLUMPS Occasional (None Seen)
[2020-02-15 08:58] VITALS: BP 130/53
[2020-02-15 09:00] VITALS: BP 130/53
[2020-02-15 11:55] VITALS: BP 191/92
[2020-02-15 16:20] VITALS: BP 170/71
[2020-02-15 19:59] VITALS: BP 149/93
[2020-02-16 05:46] LABS: ABSOLUTE NEUTROPHILS 3.8 thou/uL (1.4-8.2); BASOPHILS 0.3 % (0.0-2.0); EOSINOPHILS 0.2 % (0.0-3.0); HEMATOCRIT 36.5 % (42.0-52.0); HEMOGLOBIN 12.4 gm/dL (14.0-18.0); LYMPHOCYTES 25.4 % (24.0-44.0); MCHC 33.9 g/dL (28.0-37.0); MCV 91.5 fL (80.0-100.0); MONOCYTES 10.2 % (1.0-8.0); PLATELET COUNT 298 thou/uL (150-400); POLYS 63.9 % (36.0-66.0); RBC 3.99 mil/uL (4.50-6.00); RDW 14.5 % (10.5-14.5); WBC 5.9 thou/uL (4.0-11.0)
[2020-02-16 05:55] LABS: CALCIUM 8.9 mg/dL (8.5-10.1); CREATININE 0.9 mg/dL (0.7-1.3); MAGNESIUM 2.1 mg/dL (1.8-2.4)
[2020-02-16 06:00] LABS: POTASSIUM 2.8 mmol/L (3.5-5.1)
[2020-02-16 07:35] VITALS: BP 120/77
[2020-02-16 13:22] VITALS: BP 127/80
[2020-02-16 17:22] VITALS: BP 137/87
[2020-02-16 22:46] VITALS: BP 153/98
[2020-02-17 05:36] LABS: CREATININE 0.6 mg/dL (0.7-1.3); MAGNESIUM 2.1 mg/dL (1.8-2.4); POTASSIUM 3.3 mmol/L (3.5-5.1)
[2020-02-17 07:30] VITALS: BP 155/103
[2020-02-17 14:24] VITALS: BP 126/83
[2020-02-17 19:57] VITALS: BP 135/85
[2020-02-18 07:50] VITALS: BP 157/87
[2020-02-18 20:45] VITALS: BP 147/77
[2020-02-19 05:49] LABS: CALCIUM 8.7 mg/dL (8.5-10.1); CREATININE 0.7 mg/dL (0.7-1.3); MAGNESIUM 2.1 mg/dL (1.8-2.4); POTASSIUM 3.6 mmol/L (3.5-5.1)
[2020-02-19 06:25] LABS: URINE BLOOD 3+ (Negative); URINE GLUCOSE-RANDOM* NEGATIVE (Negative); URINE KETONES NEGATIVE (Negative); URINE LEUKOCYTES 1+ (Negative); URINE NITRITE NEGATIVE (Negative); URINE PROTEIN (DIPSTICK) 2+ (Negative); URINE SPECIFIC GRAVITY >= 1.030 (1.005-1.035); URINE UROBILINOGEN 0.2 E.U./dl (0.2-1.0)
[2020-02-19 06:31] LABS: ICTOTEST (BILI CONFIRMATORY) Negative (Negative); URINE BILIRUBIN NEGATIVE (Negative); URINE CLARITY SL HAZY; URINE COLOR BROWN
[2020-02-19 07:19] LABS: CASTS None Seen /LPF (None Seen); MUCUS 0-3 Light strn/LPF (None Seen); SQUAMOUS 0-3 Few /LPF (0-3)
[2020-02-19 07:21] LABS: URINE RBC >20 Many /HPF (0-2); URINE WBC 6-15 Few /HPF (0-5)
[2020-02-19 07:22] LABS: BACTERIA 1-9 Few /HPF (None Seen); CALCIUM OXALATE 0-3 Few /LPF (None Seen)
[2020-02-19 07:23] LABS: YEAST Present (None Seen)
[2020-02-19 07:39] VITALS: BP 128/80
== END 2020-02-19 15:39 | DRG 395 ==
LOC: ER 23:05 → 4S 02-15 07:07 → EROBS 02-15 07:07 → 4S 02-15 09:00
PROVIDERS: Emergency Medicine; Internal Medicine; Nurse Practitioner; ADMIT Hospitalist; ATTEND Hospitalist
PROC: 0DP6XUZ Removal of Feeding Device from Stomach, External Approach (ICD-10-PCS; principal; 2020-02-18)
DX: K94.23 Gastrostomy malfunction (principal); N30.90 Cystitis, unspecified without hematuria; N20.0 Calculus of kidney; F31.9 Bipolar disorder, unspecified; E86.0 Dehydration; K59.09 Other constipation; G40.909 Epilepsy, unspecified, not intractable, without status epilepticus; G30.9 Alzheimer's disease, unspecified; F02.80 Dementia in other diseases classified elsewhere, unspecified severity, without behavioral disturbance, psychotic disturbance, mood disturbance, and anxiety; R13.10 Dysphagia, unspecified; Y83.8 Other surgical procedures as the cause of abnormal reaction of the patient, or of later complication, without mention of misadventure at the time of the procedure; R63.4 Abnormal weight loss; F41.9 Anxiety disorder, unspecified; E78.5 Hyperlipidemia, unspecified; N40.0 Benign prostatic hyperplasia without lower urinary tract symptoms; Z79.899 Other long term (current) drug therapy; Z88.1 Allergy status to other antibiotic agents; Z88.2 Allergy status to sulfonamides; Z91.041 Radiographic dye allergy status; Z88.8 Allergy status to other drugs, medicaments and biological substances; Y92.89 Other specified places as the place of occurrence of the external cause; Z68.21 Body mass index [BMI] 21.0-21.9, adult
CPT/HCPCS: 10195

== ENCOUNTER 2020-02-19 15:48 | Inpatient (IN) | payer OTHER ==
[~2020-02-19] VITALS: Ht 172.7 cm; Wt 90.4 kg
--- NOTE | ~2020-02-19 | D ---
[facility] [place] [address] DISCHARGE SUMMARY Name: GEOFFREY GALLARDO Room #: 523A-A [facility] IN M.R.#: [id number] Admission: 02/19/20 Attend Phys: Uriah Hilton DO Discharge: 03/04/20 Date of : 50 Report #: [id number] THIS REPORT FOR: cc: Yolie Newman,Uriah Boyd DO ~ THIS REPORT FOR: //name// CC: Uriah Newman DATE OF SERVICE: 03/04/2020 INPATIENT PSYCHIATRIC DISCHARGE SUMMARY ATTENDING PSYCHIATRIST: Uriah Hilton DO DRYWALL TAPER HELPER: Uriah Snyder MD at the time of discharge. DISCHARGE DIAGNOSES: As follows: Major neurocognitive disorder, likely due to Alzheimer disease versus alcohol with behavioral disturbance, improving. Unspecified psychosis largely resolved. The patient was paranoid about financial improprieties of his with his affairs. The patient does have a history of major depression, but I think dementia was the predominant issue in this admission. MEDICAL COMORBIDITIES AT THE TIME OF DISCHARGE: Include failure to thrive, modest improvement, hypertension, hyperlipidemia, BPH. During the patient's admission he was found to lack capacity by myself and Dr. Snyder. DPOA was enacted. Interestingly, he had made his financial DPOA. His director of student financial services is Mr. Christoph Gilliland who worked for [employer]. Christoph declined to perform this role due to policy from his company; therefore, his son, Kenneth, who is the alternate. It should be noted I did not have direct communication with Kenneth, his ex- who is his healthcare DPOA ____. The patient is going to [facility] for assisted living. I do think the patient has mild dementia at this point. He had previously been on hospice status at another facility, I believe [facility] that was revoked at the time of admission. He also had a brief medical admission with a jejunostomy tube in place that was removed, so he could participate in a psychiatric admission. DISCHARGE DIET: Regular, Ensure chocolate twice a day. ACTIVITY LEVEL: As tolerated. He is using a walker, but electively spent a lot of time in wheelchair. The patient will have Psychiatric and medical care by receiving facility. [facility] [address] [place] [address] DISCHARGE SUMMARY Name: GEOFFREY GALLARDO Room #: 523A-A [facility] IN .R.#: [id number] Admission: 02/19/20 Attend Phys: Uriah Hilton DO Discharge: 03/04/20 Date of : 50 Report #: [id number] LABORATORY DATA: Significant laboratories in this admission on CBC: H and H 12.4 and 37.7, white count 6.3, and platelet 224. Urinalysis showed first culture on February 21 showed no significant pathogenic herman, second one cultured Staph epidermidis, which I think is likely not a pathogen. Serology for COVID-19 was negative. DISCHARGE MEDICATIONS: The hospitalist elected to treat him on 5 days of nitrofurantoin with 4 days remaining at time of discharge 100 mg p.o. b.i.d. He is on Keppra 500 mg p.o. b.i.d. for seizure that happened in the last year or so. Mirtazapine 22.5 mg p.o. at bedtime for sleep, appetite and depression. Seroquel 50 mg p.o. 3 times a day for psychosis. Latanoprost 1 drop at bedtime to his left eye for glaucoma. Senna docusate 2 tabs p.o. b.i.d. for bowel motility, cholecalciferol 5000 International Units p.o. daily for vitamin D supplementation. The patient is discharged again to [facility]. REASON FOR ADMISSION: Back on 18 of February, a 70-year-old male admitted from medical floor at [facility] where he was placed due to PEG tube with concerns for agitation and psychosis. HOSPITAL COURSE: The patient was admitted to the Geriatric Psychiatry Unit. I titrated him on a course of Seroquel, I believe I increased it to 100 mg p.o. 3 times a day, but I backed it down due to sedation. The patient had a variable course about probably midway through his stay; he perked up for most. It is unclear to me why that fizzled out, perhaps his recognition of the seriousness of his physical and mental health and the need for placement. At the time of discharge, the patient was not suicidal or homicidal. He knows his name, he was grossly oriented this was hospital and believing in the date exactly. PHYSICAL EXAMINATION: VITAL SIGNS: At time of discharge, temperature 37.1, pulse 96, respirations 18, BP 140/90, O2 sat 97%. MUSCULOSKELETAL: Normal gait and station. MENTAL STATUS EXAMINATION: The patient is a well-developed, fairly nourished male, appearing stated age. Attention fair. Concentration is fair. Speech is low volume, slow rate, normal tone. Thought process is linear and goal directed. Thought content, relative poverty of thought. Some somatic worries worrying about things like he was going to get his bed made at the assisted living, which he obviously is. Denied SI or HI. Denied auditory, visual, or tactile hallucinations. Some helplessness, some hopelessness. Memory not formally tested, but noted to be impaired. Insight limited. Judgment limited. Fund of knowledge, probably above average range. [facility] [address] [place] [address] DISCHARGE SUMMARY Name: GEOFFREY GALLARDO Room #: 523A-A [facility] IN .R.#: [id number] Admission: 02/19/20 Attend Phys: Uriah Hilton DO Discharge: 03/04/20 Date of : 50 Report #: [id number] PROGNOSIS: For this patient is guarded given the presence of a neurodegenerative disorder, poor coping skills, history of alcoholism. By: 2200 [id number] Uriah Hilton DO /nt
[2020-02-19 16:07] VITALS: BP 142/76
--- NOTE | 2020-02-19 16:41 | NUR ---
PT. ARRIVED AT 1540 VIA W/C FROM ER. PT. WAS PLACED IN A BED DURING INTERVIEW. HE WAS ON HOSPICE AT [facility] IN [place]. THEY BELIEVED HE WAS INAPPROPRIATE FOR THE HOSPICE DX. HE WAS REMOVED FROM IT. HE WAS HITTING AND THREATENING STAFF THERE. HE HAS BEEN TO SEVERAL MENTAL PLACES IN THE PAST 7 TO 8 MONTHS. HE STATES HE HAS LOST A BIT OF WEIGHT IN THE PAST FEW MONTHS WITHOUT TRYING, ABOUT 5-10 LBS. HE STATES HE IS ONLY HERE TO STRENGTHEN HIMSELF. HE HAS A HISTORY OF OPEN HEART SURGERY, COUPLE OF HERNIA REPAIRS, A RECTUM SURGERY AND A CYST REMOVED. PT. HAD A PEG TUBE REMOVED ON 02/18/20. PER NURSING NOTES, HE WAS SWOLLOWING PILLS WITHOUT DIFFICULTY. HE IS ON POTASSIUM X 48 HOURS. HE DENIES FALSE TEETH, GLASSES OR HEARING AIDES. 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 HE IS UTILIZING A WALKER FOR AMBULATION, IS NOT REAL STEADY ON HIS FEET AND WAS PLACED ON FALL PERCAUTIONS FOR HIS SAFETY.
[2020-02-19 18:52] VITALS: BP 131/83
[2020-02-19 22:22] VITALS: BP 131/83
--- NOTE | 2020-02-20 04:52 | NUR ---
Assumed care of patient this pm shift. Patient calm and cooperative. Patient states that he is having trouble moving his bowels. Patient did have a small loose bowel movement later in the evening. Patient is encouraged to call out for assistance when trying to toilet as his legs are weak and his balance is off. Client also states that he was nauseated, RN gave Zofran to relieve this. Client is alert and oriented x2 to person and place. Affect is flat. Patient denies hi/si. Tylenol was given for a headache. Patient is a high falls risk at this time. Client is continent of bowel and bladder but requires assistance to get on the commode. Assessment shows no signs of acute distress. We will continue to monitor per hospital policy.
[2020-02-20 07:26] VITALS: BP 141/96
--- NOTE | 2020-02-20 13:17 | NUR ---
ANXIOUS FACIAL EXPRESSION AND IS NOTED TO BE SOMATICALLY PREOCCUPIED THIS AM-REQUESTING FREQUENTLY TO USE BATHROOM STATING THAT HE IS CONSTIPATED. WAS REPORTED BY NOCT SHIFT RN TO HAVE BM X3 LAST NIGHT. WHEN ON TOILET IS OBSERVED TO BE STRAINING-MOANING AND BEARING DOWN FORCIBLY-STATES IS WORRIED THAT HE HAS TO "GO SOME MORE" NO STOOL FELT IN RECTAL VAULT UPON DIGITAL EXAM. ABDOMEN SOFT-BS X 4. IS SLIGHTLY LESS BOWEL PREOCCUPIED WHEN ENGAGED IN GROUP ACITVITIES OR CONVERSATION. IS ORIENTED TO PERSON AND AWARE HE IS AT HSOPITAL. REMAINS HIGH FALLS RISKD/T UNSTEADY GAIT,POOR BALANCE. DOES FOLLOW VERBAL DIRECTION FROM NURSING STAFF.
[2020-02-20 19:32] VITALS: BP 137/77
--- NOTE | 2020-02-21 02:44 | NUR ---
PATIENT ASSESSED AND IS ALERT X2-3. SKIN WARM AND DRY. RESP EVEN AND UNLABORED. GETS ANXIOUS AT TIMES. NONE NOTED THIS SHIFT. STARTED HIM ON REMERON, HAS BEEN SLEEPING WELL. COOPERATIVE TO GET IN BED. NEEDS 1 PERSON ASSIT TO ROOM NAD TO PUT HIM TO BED. IS ALITTLE WOBBLEY ON FEET AT TIMES. VS STABLE. TAKES MEDS WHOLE WITH OUT PROBLEMS IN YOGART. LUNGS CTA. NO EDEMA NOTED. INCONT AT TIMES.WEARS BREIFS. NO SI/HI/AH/VH/ NOTED THIS SHIFT. CONT PLAN OF CARE.
--- NOTE | 2020-02-21 05:45 | NUR ---
PATIENT REMAINS SLEEPING WELL. DENIES ANY PROBLEMS. NO S/S FROM REMERON NOTED.
[2020-02-21 07:22] VITALS: BP 139/95
--- NOTE | 2020-02-21 09:26 | NUR ---
0700 ASSUMED CARE OF PATIENT, PATIENT IN ROOM AT THAT TIME. 0830 PATIENT IN DAYROOM SITTING IN WC AT TABLE. MEDICATIONS GIVEN WHOLE WITHOUT DIFFICULTY. NO C/O PAIN DENIES NEEDS. PATIENT IN GROUP AT THIS TIME.
[2020-02-21 19:44] VITALS: BP 120/75
[2020-02-21 21:33] VITALS: BP 120/75
--- NOTE | 2020-02-22 02:45 | NUR ---
Assumed care of patient this pm shift. Patient in good spirits, calm and cooperative. Patient denies hi/si. Patients affect is blunted. Patient takes medications whole in thin fluids. Patient is considered a falls risk and has on a yellow shirt. Patient is weak in the legs and requires assist x1 to toilet. Patients assessment shows no signs of acute distress. Patient states that his bowels are moving fine. Patient did not voice any new concerns at this time. No prn medications have been required this evening. We will continue to monitor per hospital policy.
[2020-02-22 13:42] VITALS: BP 145/100
[2020-02-22 13:49] LABS: URINE BILIRUBIN NEGATIVE (Negative); URINE BLOOD 3+ (Negative); URINE GLUCOSE-RANDOM* NEGATIVE (Negative); URINE KETONES NEGATIVE (Negative); URINE NITRITE-REFLEX NEGATIVE (Negative); URINE PROTEIN (DIPSTICK) 3+ (Negative); URINE SPECIFIC GRAVITY >= 1.030 (1.005-1.035); URINE UROBILINOGEN 0.2 E.U./dl (0.2-1.0)
[2020-02-22 13:50] LABS: URINE LEUKOCYTES-REFLEX 2+ (Negative)
[2020-02-22 13:51] LABS: URINE CLARITY SL HAZY; URINE COLOR BROWN
[2020-02-22 14:00] LABS: CASTS None Seen /LPF (None Seen); MUCUS >6 Heavy strn/LPF (None Seen); SQUAMOUS 0-3 Few /LPF (0-3)
[2020-02-22 14:01] LABS: BACTERIA-REFLEX None Seen /HPF (None Seen); CRYSTALS None Seen /LPF (None Seen); URINE RBC >20 Many /HPF (0-2); URINE WBC-REFLEX 6-15 Few /HPF (0-5)
--- NOTE | 2020-02-22 14:37 | NUR ---
0700 ASSUMED CARE OF PATIENT. 0730 PATIENT UP IN WHEELCHAIR IN DAY ROOM. EATING MEALS IN DAYROOM. TAKING MEDICATIONS ORALLY. HAVING LOOSE STOOLS x2. lUNG SOUNDS CLEAR. ABDOMEN SOFT. BOWEL SOUNDS PRESENT. NOTED RIGHT LOWER QUADRANT SLIGHT TENDERNESS. BODY CHECK PERFORMED. NO REDNESS, SKIN INTACT. fALL PRECAUTIONS IN PLACE. YELLOW SHIRT AND NONSLIP SOCKS IN PLACE. CHAIR ALARM IN PLACE AND ON. COOPERATIVE WITH ALL ASSESSMENTS. ALERT AND ORIENTED X4. PATIENT STATED YANNA IS THE PRESIDENT. PLEASANT. NO AGGRESSION OBSERVED. EDUCATED THAT NEEDED TO COLLECT A URINALYSIS. COOPERATIVE. UA COLLECTED AND SENT TO LAB. URINE ENRIQUE AND CLOUDY.
[2020-02-22 19:11] VITALS: BP 128/78
--- NOTE | 2020-02-23 05:20 | NUR ---
Assumed pt's care this pm shift. Pt alert and oriented x4. Forgetful. Pt was in his room at time of assessment. Calm and cooperative. Pt voiced having some anxiety, denies depression. Pt reported generalized pain 8/. PRN tylenol given for pain. Pt took HS meds wholes without any concerns. Pt remained in bed all thorugh. Declined HS snacks. Fall precautions in place. Will continue to monitor.
[2020-02-23 07:35] VITALS: BP 136/91
--- NOTE | 2020-02-23 09:29 | NUR ---
0700 ASSUMED CARE OF PATIENT, PATIENT SITTING IN WC IN DAYROOM AT THAT TIME. 0800 PATIENT NOTED EATING BREAKFAST, DENIES NEEDS AT THAT TIME. 0830 MEDICATIONS GIVEN WHOLE WITHOUT DIFFICULTY. PATIENT CONTINUES TO SIT IN WC MANEUVERING HIM SELF IN DAYROOM. WATCHING TV AT THIS TIME. VS STABLE, NO C/O PAIN.
--- NOTE | 2020-02-23 18:47 | NUR ---
PATIENT TAKEN TO BATHROOM BY FENCE INSTALLER HELPER. BLOOD NOTED IN URINE. PATIENT CURRENTLY ON ANTIBIOTICS. PATIENT IN WC AND BACK TO DAYROOM. WILL CONTINUE TO ENCOURAGE FLUIDS.
[2020-02-23 19:50] VITALS: BP 142/85
--- NOTE | 2020-02-24 06:02 | NUR ---
Assumed pt's care this pm shift. Pt alert and oriented. Forgetful. Pt pleasant and cooperative with assessment. Meds given per emar. PRN tylenol also given. Pt had urinary frequency this shift. Pt currently awake in the dayroom. Will continue to monitor.
[2020-02-24 07:30] VITALS: BP 126/87
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
--- NOTE | 2020-02-24 09:23 | NUR ---
0700 ASSUMED CARE OF PATIENT, PATIENT SITTING IN DAYROOM AT THAT TIME. PATIENT AT TABLE EATING BREAKFAST. 0810 MEDICATIONS GIVE WHOLE, TAKEN WITHOUT DIFFICULTY. PATIENT GIVEN TYLENOL 650MG PO FOR GENERALIZED PAIN. PATIENT C/O SOME BURNING WITH URINATION. PATIENT TO ROOM PROPPELLING SELF IN WC. PATIENT VOIDED X1. PATIENT BACK TO DAYROOM.
--- NOTE | 2020-02-24 10:32 | NUR ---
ELLIOTT faxed updates to [facility].
--- NOTE | 2020-02-24 18:14 | NUR ---
PATIENT CONTINUES TO DRINK WATER WITH SOME ENCOURAGEMENT. PATIENT STATES BURNING FROM URINATION HAS DECREASED. PATIENT TO ROOM TO REST IN BED WITH SOME ENCOURAGE OF GETTING OF BOTTOM FOR A WHILE.
[2020-02-24 19:16] VITALS: BP 128/74
[2020-02-24 21:05] VITALS: BP 128/74
--- NOTE | 2020-02-25 02:02 | NUR ---
Assumed care of patinet this pm shift. Patient in good spirits calm and cooperative. Patient is alert and oriented x3. Patients affect is blunted. Patient takes medications whole with thin fluids. Patient is considered a falls risk and has on a yellow shirt. Patient ambulates via wheelchair and walker. Patients assessment shows no signs of acute distress. Patient denies hi/si. Patient denies pain. Patient did not have any questions for the RN this shift. We will continue to monitor per hospital policy.
[2020-02-25 07:15] VITALS: BP 134/88
--- NOTE | 2020-02-25 11:21 | NUR ---
ELLIOTT spoke with Hyacinth Sidhurill, Pt's healthcare DPOA, snd informed about the letter to enact the DPOA. Hyacinth asked that it be mailed to her home address. Hyacinth also informed that the Pt's financial DPOA, Christoph Hernandezladonnatammy, had a confilct with the DPOA. Hyacinth stated that due to the Pt being a client of Christoph's, Christoph's employer restricts him of being the Pt's DPOA. Therefore the Pt may not have access to funds to pay for care at this time. Hyacinth stated she may be able to pay for 2 months of AL. Hyacinth also stated they were hiring an civil litigation attorney concerning this issue. ELLIOTT did inform Hyacinth of a clause in the financial DPOA that named their son, Sapna Guillermo, as secondary if Christoph Rosa is unwilling or unable to be the Pt's DPOA. ELLIOTT mailed letter to enact DPOA and AL memory care listing to Hyacinth's home address.
--- NOTE | 2020-02-25 11:30 | NUR ---
ELLIOTT called Christoph Rosa, , concerning letter to enact DPOA. ELLIOTT and Christoph talked about the clause in the Pt's finicial DPOA tat allows him to refuse the responsibility and pass it to Genia Guillermo. Christoph was unaware of this and asked for a copy to be emailed to him at [email or web address] ELLIOTT emailed paperwork per Shelley's request
--- NOTE | 2020-02-25 11:37 | NUR ---
ELLIOTT left a Vm for Queenie Chandra, , at [facility] concerning openings for assisted living.
--- NOTE | 2020-02-25 16:47 | NUR ---
WAS INCONTINENT OF LARGE AMOUNT OF LIQUID STOOL THIS AM-REQUESTED ASSISTANCE IN CHANGING SOILED CLOTHING AND REQUESTS SBA X1 FOR ALL CARES. ANXIOUS FACIAL EXPRESSION AND CONTNUES TO BE SOMATICALLY PREOCCUPIED-NEEDS REMINDERS TO DO MUCH FOR SELF POSSIBLE. DENIES SI/SH/HI. NO NOTED OR REPORTED PSYCHOSIS-TAKE PO FLUIDS/FOOD WELL.
[2020-02-25 19:59] VITALS: BP 123/73
--- NOTE | 2020-02-25 23:01 | NUR ---
Assumed pt's care this pm shift. Pt alert and oriented x3. Vo[facility]. Forgetful. Pt was in the dayroom, sitting on his wheelchair at time of assessment. Pt was calm and cooperative. Denies anxiety and/or depression. Per report, pt was incontinent of large loose BM in the am. HS stool softener, and pt educated on why med was held tonight. Pt voices understanding. Pt took meds whole without problems. Pt now in bed, sleeping. Fall precaution in place. Will continue to monitor.
[2020-02-26 07:28] VITALS: BP 124/88
--- NOTE | 2020-02-26 15:39 | NUR ---
RT Progress Note- Enrrique remains out of his room and in the milieu during the day. He often sits near the TV and interacts little with peers during unscheduled time. At times he is reluctant to fully engage in groups and appears flat in affect. By the end of group his comfort level appears to improve and he does participate. He has been tearful in some groups when speaking about his MNCD diagnosis and needing to move.
--- NOTE | 2020-02-26 16:47 | NUR ---
ELLIOTT sent referrals to the following [facility] [phone] [facility] [phone] [facility] [phone] [facility] [phone]
[2020-02-26 20:00] VITALS: BP 109/74
--- NOTE | 2020-02-27 05:49 | NUR ---
care assumed at 1900 patient was in dayroom. patient had anxiety this shift. patient had a flat affect, poor eye contact, fair grooming and hygiene. patient encouraged fluids. patient in bed asleep at this time breathing regular and unlaboured.
[2020-02-27 07:29] VITALS: BP 116/83
--- NOTE | 2020-02-27 13:59 | NUR ---
PATIENT WAS UP IN WHEELCHAIR, SITTING IN DAYROOM WHEN CARE ASSUMED. PATIENT IS ALERT, AND ORIENTED X 2-3, CAN BE FORGETFUL AT TIMES. PATIENT TOOK ALL MEDICATION WHOLE WITHOUT DIFFICULTY. PATIENT IS EATING MEALS, AND DRINKING FLUID WELL. PATIENT DENIES SUUICIDAL/HOMICIDAL IDEATION. PATIENT RATED BOTH DEPRESSION/ANXIETY 5/10, RATED PAIN TO BUTTOCKS 8/10, TYLENOL 650MG GIVEN. WHEN REASSESSED, PAIN DECREASED TO 6/10. PATIENT DENIES AUDITORY/VISUAL HALLUCINATION. AFFECT IS BLUNTED/FLAT, MOOD IS CALM, COOPERATIVE. PATIENT PARTICIPATES IN GROUP THERAPY, NO SIGN OF ACUTE DISTRESS NOTED AT THIS TIME, WILL MONITOR FOR SAFETY.
--- NOTE | 2020-02-27 16:20 | NUR ---
1530 Pt completed an assessment with [facility]. [facility] did accept the Pt in to AL memory care unit. [facility] informed that Alesia Guillermo, Pt's DPOA, was scheduled to complete admissions paperwork Tuesday02/29/2020. [facility] will be able to place the Pt early next week.
[2020-02-27 19:04] VITALS: BP 122/76
--- NOTE | 2020-02-28 02:02 | NUR ---
PATIENT HAD MINIMUM ANXIETY AND DEPRESSION THIS SHIFT. PATIENT ENCOURAGED FLUIDS.PATIENT SLEEPS GOOD. PATIENT HAS A GOOD APPETITE. PATIENT HAD A FLAT AFFECT, POOR EYE CONTACT, GOOD GROOMING AND HYGIENE. PATIENT USES URINAL AT NIGHT. PATIENT IS A FALL RISK FALL PRECAUTION IN PLACE. PATIENT IN BED ASLEEP AT THIS TIME BREATHING REGULAR AND UNLABOURED.
[2020-02-28 07:38] VITALS: BP 111/81
[2020-02-28 08:10] VITALS: BP 111/81
--- NOTE | 2020-02-28 09:29 | NUR ---
0700 ASSUMED CARE OF PATIENT, PATIENT SITTING IN WC IN DAYROOM. PATIENT DRINKING COFFE AND WAITING FOR BREAKFAST. DENIES NEEDS AT THAT TIME. 0810 MEDICATIONS GIVEN WHOLE WITHOUT DIFFICULTY. PATIENT ATTENDING GROUP AT THIS TIME. WILL CONTINUE TO OBSERVE
[2020-02-28 20:17] VITALS: BP 108/75
[2020-02-29 02:43] VITALS: BP 108/75
--- NOTE | 2020-02-29 04:52 | NUR ---
Assumed care on 02/28/20 @ 19:15, seated in the day room watching tv and anticipating the Chief's football game. A&Ox4. Confused and forgetful. Fall precautions in place. Uses W/C and propells self using feet for forward movement. Ramires scale 70, and is a yellow high fall risk. Wearing yellow shirt, bracelet and socks. Can ambulate with a walkr x1 assist. Last BM 02/25. No adverse behaviors noted. Will continue to monitor as per protocol for safety and comfort.
[2020-02-29 08:00] VITALS: BP 125/79
--- NOTE | 2020-02-29 15:48 | NUR ---
ELLIOTT spoke with Pt's DPOA, Alesia, and informed that the Pt will be discharged 03/04/2020. Kaycee stated the Pt was in need of a hospital bed and a wheelchair and she did not know if they would be delivered by Tuesday. Alesia did state that [facility] was assisting in getting the items for the Pt. Alesia stated she would call to make sure the items are delievered prior to the Pt's discharge.
--- NOTE | 2020-02-29 16:41 | NUR ---
PT WORKED WITH PATIENT TODAY. PATIENT PROPELLING SELF TO BR AND TRANSFERING SELF TO TOILET. PATIENT EDUCATED ON ASKING FOR HELP AND ASSISTANCE TO BR. PATIENT ASKS FOR A SHAVE. ELECTRIC RAZOR USED PATIENT HAPPY. PATIENT C/O UPSET STOMACH, MYLANTA PO GIVEN. PATIENT STATES 'I WILL NOT BE ABLE TO EAT DINNER". WILL REASSESS WHEN DINNER ARIVES. PATIENT PROPELS SELF BACK TO DAYROOM.
[2020-02-29 19:47] VITALS: BP 99/55
[2020-02-29 22:55] VITALS: BP 99/55
--- NOTE | 2020-03-01 02:56 | NUR ---
Assumed care on 02/29/20 @ 19:15, seated in his w/c in the day room. Ate evening snack 100%. Alert and oriented x4, however confused and forgetful. Impatience noted with care. On fall precautions and a Ramires score of 70. Able to ambulate with a walker x1 assist. Requests MOM for constipation, provided @ 20:15. Retired after medications administered, x1 staff assist. Incontinent of urine in the night. Cushion placed in w/c for added comfort tomorrow. Wakened in the night asking to be changed, incontinent care and bedding change provided. Will continue to monitor as per unit protocol for patient safety and comfort.
--- NOTE | 2020-03-01 06:06 | NUR ---
slept 8 hours
[2020-03-01 09:13] VITALS: BP 113/72
--- NOTE | 2020-03-01 09:52 | NUR ---
0700 ASSUMED CARE OF PATIENT, PATIENT SITTING ON WC IN DAYROOM. PATIENT ATE 90% OF BREAKFAST THIS AM. PATIENT C/O KASPER AND SLIGHT UPSET STOMACH. PATIENT DENIES SI/HI/AH/VH. PATIENT IS CALM AND COOPERATIVE. SPOKE WITH MIMI MAY ABOUT CO KASPER, ORDER RECIEVED.
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
[2020-03-01 20:15] VITALS: BP 115/71
[2020-03-02 08:59] VITALS: BP 101/69
--- NOTE | 2020-03-02 10:54 | NUR ---
ASSUMED CARE OF PATIENT AT 0700. UP IN WHEELCHAIR IN DAYROOM. ALERT AND ORIENTED x4. IS FORGETFUL. COOPERATIVE WITH ASSESSMENT. LUNG SOUNDS CLEAR, PATIENT NOTES SOME RIGHT UPPER ABDOMINAL TENDERNESS ON PALPATION. BOWEL SOUNDS PRESENT. PATIENT STATES LAST BOWEL MOVEMENT WAS TODAY. NO PEDAL EDEMA. EATING MEALS IN DAYROOM. IS NOT INTERACTING WITH PEERS. DOES NOT INITIATE CONVERSATION. DENIES SI/HI AND AVH. COMPLAINING OF PAIN IN BOTTOM (3/10). ADMINISTERED TYLENOL 1000MG PO AT 0755. ON REASSESSMENT SAYS IS FEELING BETTER. FALL PRECAUTIONS IN PLACE.
--- NOTE | 2020-03-02 13:00 | NUR ---
ELLIOTT faxed updates to [facility].
[2020-03-02 17:12] LABS: HEMATOCRIT 37.7 % (42.0-52.0); HEMOGLOBIN 12.4 gm/dL (14.0-18.0); MCHC 32.8 g/dL (28.0-37.0); MCV 94.6 fL (80.0-100.0); RBC 3.99 mil/uL (4.50-6.00); RDW 15.2 % (10.5-14.5); WBC 6.3 thou/uL (4.0-11.0)
[2020-03-02 19:16] VITALS: BP 112/71
[2020-03-02 21:08] LABS: URINE BILIRUBIN NEGATIVE (Negative); URINE BLOOD 3+ (Negative); URINE CLARITY SL CLOUDY; URINE COLOR YELLOW; URINE GLUCOSE-RANDOM* NEGATIVE (Negative); URINE KETONES TRACE (Negative); URINE PROTEIN (DIPSTICK) 2+ (Negative); URINE SPECIFIC GRAVITY 1.025 (1.005-1.035); URINE UROBILINOGEN 0.2 E.U./dl (0.2-1.0)
[2020-03-02 21:09] LABS: URINE LEUKOCYTES-REFLEX 2+ (Negative); URINE NITRITE-REFLEX POSITIVE (Negative)
[2020-03-02 21:12] LABS: CASTS None Seen /LPF (None Seen); SQUAMOUS 0-3 Few /LPF (0-3); URINE WBC-REFLEX >25 Many /HPF (0-5)
[2020-03-02 21:13] LABS: MUCUS >6 Heavy strn/LPF (None Seen); URINE RBC >20 Many /HPF (0-2)
[2020-03-02 21:14] LABS: BACTERIA-REFLEX None Seen /HPF (None Seen); CRYSTALS None Seen /LPF (None Seen)
--- NOTE | 2020-03-03 02:16 | NUR ---
ASSUMED PT CARE AROUND 1930. ALERT AND ORIENTED. C/O CONSTIPATION. PRN MEDS GIVEN. NO S/S ACUTE DISTRESS NOTED OR REPORTED AT THIS TIME. WILL CONT TO MONITOR FOR ANY CHANGES IN CONDITION.
[2020-03-03 07:37] VITALS: BP 134/96
[2020-03-03 08:10] VITALS: BP 134/96
--- NOTE | 2020-03-03 08:29 | NUR ---
PT SITTING AT TABLE. PT WANTING COFFEE THIS AM. PT HAS WATER PITCHER IN ROOM EMPTY. PT STATED HE DIDN'T DRINK VERY MUCH WATER. ENCOURAGED PT TO DRINK MORE WATER. PT IN W/C. PT STATED HE IS WEAK TO WALK. PT STATED HE HAD X2 STOOLS LAST NIGHT. PT LUNGS CLEAR. PT HEART BEAT IS STRONG.
--- NOTE | 2020-03-03 11:46 | NUR ---
ADM MAALOX 15ML PO FOR COMPLAINS OF UPSET STOMACH.
[2020-03-03 18:55] VITALS: BP 126/79
[2020-03-03 22:42] VITALS: BP 126/79
--- NOTE | 2020-03-04 04:14 | NUR ---
Assumed care of patient this pm shift. Patient in good spirits, calm and cooperative. Patient denies pain. Patient denies hi/si. Patient takes medications whole with thin fluids. Patients affect is blunted. Patient states that he is having regular bowel movements. Patient is considered a falls risk. Patients assessment shows no signs of acute distress. Patient is alert and oriented x3. Patient did not voice any new concerns this shift. We will continue to monitor patient per hospital protocol.
[2020-03-04 07:36] VITALS: BP 142/92
[2020-03-04] MEDS ORDERED: MACROBID 100 M100 M2 PO (10:09)
[2020-03-04] MEDS ORDERED: KEPPRA 500 MG500 M1 PO (10:14)
[2020-03-04] MEDS ORDERED: SEROQUEL 50 MG50 MG PO (10:15)
[2020-03-04] MEDS ORDERED: REMERON15 M2 PO (10:15)
[2020-03-04] MEDS ORDERED: LATANOPROST2.5 ML OPHTHALMIC (10:16)
[2020-03-04] MEDS ORDERED: SENNA-TIME S T1 EACH PO (10:19)
[2020-03-04] MEDS ORDERED: VITAMIN D325 MC1 PO (10:20)
--- NOTE | 2020-03-04 11:47 | NUR ---
Patient was discharged from the unit at 1111 in w/c excorted by RN with papers and belongings To [facility] , [place]. Report was called to GREGORY King at [phone]. Note funeral car driver was called to return for papers of RX's and voice mail was left for him and facility of [facility] were notified. RX's were faxed by Gabi Barrera to [phone]. Patient was cooperative, alert. He was anticipating his to bring him more belongings to the facility. He was a little nervous/anxious about going to a new facility.
== END 2020-03-04 11:10 | DRG 56 ==
LOC: SBH 15:48
PROVIDERS: Internal Medicine; ADMIT Psychiatry & Neurology Psychiatry; ATTEND Psychiatry & Neurology Psychiatry
DX: G30.9 Alzheimer's disease, unspecified (principal); E43 Unspecified severe protein-calorie malnutrition; F01.51 Vascular dementia, unspecified severity, with behavioral disturbance; N39.0 Urinary tract infection, site not specified; F02.81 Dementia in other diseases classified elsewhere, unspecified severity, with behavioral disturbance; F32.9 Major depressive disorder, single episode, unspecified; Z68.30 Body mass index [BMI] 30.0-30.9, adult; K21.9 Gastro-esophageal reflux disease without esophagitis; I10 Essential (primary) hypertension; E78.5 Hyperlipidemia, unspecified; N40.0 Benign prostatic hyperplasia without lower urinary tract symptoms; Z20.828 Contact with and (suspected) exposure to other viral communicable diseases; Z88.6 Allergy status to analgesic agent; Z88.1 Allergy status to other antibiotic agents; Z88.2 Allergy status to sulfonamides; Z88.8 Allergy status to other drugs, medicaments and biological substances; Z79.899 Other long term (current) drug therapy
CPT/HCPCS: 10880

== ENCOUNTER 2020-05-13 12:08 | Inpatient (IN) | payer OTHER ==
[~2020-05-13] VITALS: Ht 172.7 cm; Wt 61.3 kg
[2020-05-13 12:08] VITALS: BP 99/63
[~2020-05-13 12:08] MED LIST changes: +KEPPRA 500 MG500 M1 PO; +LATANOPROST2.5 ML OPHTHALMIC; +MACROBID 100 M100 M2 PO; +REMERON15 M2 PO; +SENNA-TIME S T1 EACH PO; +SEROQUEL 50 MG50 MG PO; +VITAMIN D325 MC1 PO
[2020-05-13 12:30] LABS: URINE BLOOD 3+ (Negative); URINE CLARITY CLOUDY; URINE COLOR YELLOW; URINE GLUCOSE-RANDOM* NEGATIVE (Negative); URINE KETONES TRACE (Negative); URINE NITRITE-REFLEX NEGATIVE (Negative); URINE PROTEIN (DIPSTICK) 3+ (Negative); URINE SPECIFIC GRAVITY >= 1.030 (1.005-1.035)
[2020-05-13 12:36] LABS: ICTOTEST (BILI CONFIRMATORY) Negative (Negative); URINE BILIRUBIN NEGATIVE (Negative); URINE LEUKOCYTES-REFLEX 2+ (Negative)
[2020-05-13 12:41] LABS: AMP/METHAMP Negative (Negative); BARBITURATES Negative (Negative); BENZODIAZEPINES POSITIVE (Negative); COCAINE Negative (Negative); METHADONE Negative (Negative); OPIATES Negative (Negative); PCP Negative (Negative)
[2020-05-13 12:48] LABS: ABSOLUTE NEUTROPHILS 3.8 thou/uL (1.4-8.2); BASOPHILS 0.5 % (0.0-2.0); EOSINOPHILS 2.1 % (0.0-3.0); HEMATOCRIT 40.9 % (42.0-52.0); HEMOGLOBIN 13.9 gm/dL (14.0-18.0); LYMPHOCYTES 28.2 % (24.0-44.0); MCH 31.1 pg (26.0-34.0); MCV 91.3 fL (80.0-100.0); MONOCYTES 5.6 % (1.0-8.0); PLATELET COUNT 226 thou/uL (150-400); POLYS 63.6 % (36.0-66.0); RBC 4.48 mil/uL (4.50-6.00); RDW 14.9 % (10.5-14.5)
[2020-05-13 12:54] LABS: MUCUS 0-3 Light strn/LPF (None Seen)
[2020-05-13 12:56] LABS: CALCIUM 9.9 mg/dL (8.5-10.1); POTASSIUM 3.7 mmol/L (3.5-5.1)
[2020-05-13 12:57] LABS: CASTS None Seen /LPF (None Seen); CRYSTALS None Seen /LPF (None Seen); SQUAMOUS 0-3 Few /LPF (0-3); URINE WBC-REFLEX 0-5 Rare /HPF (0-5)
[2020-05-13 13:01] LABS: TOTAL BILIRUBIN 0.5 mg/dL (0.2-1.0); TOTAL PROTEIN 7.7 g/dL (6.4-8.2)
[2020-05-13] MEDS ORDERED: TRAMADOL 50 MG50 MG PO (13:17)
--- NOTE | 2020-05-13 13:17 | EKG ---
[facility] [place] [address] ELECTROCARDIOGRAM REPORT Name: GEOFFREY GALLARDO Room #: PRE M.R.#: [id number] Admission: Attend Phys: Discharge: Date of : 50 Report #: [id number] THIS REPORT FOR: cc: Yolie Newman,Miguel Rivera MD [facility] ~ THIS REPORT FOR: //name// [facility] ED Test Date: 2020-05-13 Test Time: 12:38:26 Pat Name: GEOFFREY GALLARDO Department: Room: Gender: M Executive Search Consultant: : 1950 Requested By: Don Storm Order Number: [id number] MD: Miguel Busby Measurements Intervals [place] Rate: 81 P: 68 [place]: 149 QRS: -11 QRSD: 134 T: 57 QT: 378 QTc: 439 Interpretive Statements Sinus rhythm Right bundle branch block Baseline wander in lead(s) V1,V4 Compared to ECG 02/14/2020 10:56:29 No significant changes Electronically Signed On 05-13-2020 13:17:16 LOAN OFFICER ASSISTANT by Miguel Busby [email or web address] <ELECTRONICALLY SIGNED> By: Miguel Busby MD, FACC 05/13/20 1317 1238 1238 Miguel Busby MD, [facility] /EPI
[2020-05-13] MEDS ORDERED: ALPRAZOLAM 0.50.5 M1 PO (13:18)
[2020-05-13] MEDS ORDERED: FLUOXETINE HCL40 MG PO (13:18)
[2020-05-13] MEDS ORDERED: LISINOPRIL10 MG PO (13:18)
[2020-05-13] MEDS ORDERED: TYLENOL325 M1 PO (13:20)
[2020-05-13] MEDS ORDERED: MAGIC BULLET10 MG RECTAL (13:21)
[2020-05-13] MEDS ORDERED: IBUPROFEN 800800 M1 PO (13:21)
[2020-05-13] MEDS ORDERED: MILK OF MA400 MG/5 M PO (13:22)
[2020-05-13 21:35] VITALS: BP 92/56
[2020-05-13 21:45] VITALS: BP 98/60
--- NOTE | 2020-05-14 04:22 | NUR ---
05-13-20 RECEIVED REPORT FROM ED SENIOR EDUCATION SPECIALISTMEKHI PERKINS AT 2120. RECEIVED PT TO UNIT 2140, PT ASSISTED INTO BED FROM W/CHAIR. PT AAOX3, VS B/P 98/60, P 61, R18, T 97.1, 02 SAT 96% RA, RR EVEN AND NONLABORED. PT REPORTS HAVING PAIN ALL THE TIME AND NOTHI, "HE WOULD LIKE TO GO ON AND IF HE CANNOT GET ANY PAIN RELIEF." PT HAS A HX HTN, HYPERLIPIDEMIA, BPH, GLAOCOMA, DEMENTIA, DEPRESSION AND ANXIETY. ASSISTED PT WITH URINAL AND GROSS HEMATURIA, PT REPORTED THIS HAS BEEN GOING ON FOR THE LAST SIX MONTHS. PT BED WAS ADJUSTED FOR PT COMFORT AND HS SNACK OF ICE CREAM AND PT ATE 100%. PT DENIES HI, BUT AGAIN STATES HE IS READY TO IF HE CANNOT GET RID OF THE PAIN, PT DENIES HAVING A PLAN. WHEN ACCESSING PAIN PT REPORTS THAT IT'S OK AT THIS TIME, ER GAVE ME SOMETHING. PT HAS PETECHIAE SPOTS UE AND TRUNK AND NOTED REDDNESS IN SANDRA-ANAL AREA, BUT NO SKIN BREAKDOWN. HCP Sander VERAS NP CONSULTED AND HCP Braeden MENDEZ MD CONSULTED AND ORDERS RECEIVED. LATER ASSISTED PT WITH URINAL 150ML OF HEMATURIA. ZERO S/S OF ACUTE DISTRESS NOTED, PT WILL CONTINUE TO BE MONITOR PER [facility] PROTOCOL.
[2020-05-14 07:30] VITALS: BP 123/76
[2020-05-14 11:13] VITALS: BP 123/76
--- NOTE | 2020-05-14 13:41 | NUR ---
Alert and orientated X 4. States that he doesn't want to be here and he doesn't want to attend "stupid" groups. States he wants to just d/t pain but denies active SI/HI. Focused on having BM and receiving meds for anxiety which he reports as 03/29. States he would not have come if he thought he was coming back to [facility]--thought he would be admitted into hospital instead of psych. Ativan given per order. Able to walk across room with minimal assistance with Dr. Hilton. Breath sounds clear. Reg HR auscultated. Color pink with brisk capillary refill and palpable peripheral pulses. Attempted to use urinal X 2 without success. BM this AM per report. Active bowel sounds over soft, rounded abdomen. Multiple requests t/o morning to lay down, transferred between chairs multiple times. Sat in room during group.
[2020-05-14 20:10] VITALS: BP 96/64
--- NOTE | 2020-05-15 02:55 | NUR ---
05-14-20 CARE TRANSFERRED AT 1915 OBSERVED LEFT SIDE LYING RESTING WITH EYES CLOSED IN BED. 2019 PT AAOX3, VS B/P 96/64, P70, R18, T 97.2, 02 SAT 96% RA RR EVEN AND NONLABORED. PT REPORTS HE WOULD JUST LIKE TO , BECAUSE THE PAIN WILL NOT GO AWAY, PT DENIES HAVING A PLAN AND DENIES HI. PT REPORTS THAT RIGHT NOW IT IS HIS FEET THAT ARE HURTING AND SCORES AT A 6 ON 0-10 SCALE. PT PRESENTS ANXIOUS BUT REMAINED CALM AND COOPERATIVE THROUGHOUT NURSING ASSESSMENT. DURING MEDICATION ADMIN PT HAD NO DIFFICULTIES, LATER ASSISTED PT TO BATHROOM AND PT USED TOLIET BUT NOTED DARK YELLOWISH RED. ZERO S/S OF ACUTE DISTRESS NOTED, PT WILL CONTINUE TO BE MONITOR.
[2020-05-15 09:25] VITALS: BP 117/96
[2020-05-15 10:01] VITALS: BP 117/96
--- NOTE | 2020-05-15 12:23 | NUR ---
1215 RESUMMED CARE FROM OVERNIGHT SHIFT THIS AM, PATIENT THIS AM COMPLAINING ABOUT ANXIETY. I ASKED PATIENT WHY HE HAS SO MUCH ANXIETY AND HE STATES HE DID NOT KNOW. PATIENTS ABDOMEN IS SOFT ROUND BOWEL SOUNDS PRESENT LUNGS CLEAR. PATIENT DENIES SI/HI/AH/VH AT PRESENT, PATIENT CAME TO NURSES STATION AND ASKED IF HE COULD HAVE SOME LORAZAPAM. PATIENT IS NOT TRYING TO DO THINGS THAT COULD DISTRACT HIM. PATIENT IS ORIENTED TIMES 4 PATIENT IS WORRIED ABOUT HIS ANXIETY WHICH CAUSES HIM NOT TO WANT TO EAT OR DO THINGS. WILL CONTINUE TO MONITOR PATIENT FOR SAFETY AND BEHAVIORS.
--- NOTE | 2020-05-15 12:34 | H ---
[facility] [place] [address] HISTORY AND PHYSICAL Name: GEOFFREY GALLARDO Room #: 518B-B ADM IN M.R.#: [id number] Admission: 05/13/20 Attend Phys: Uriah Hilton DO Discharge: Date of : 50 Report #: [id number] THIS REPORT FOR: cc: Kristy Robbins MD,Uriah Topete MD, DO ~ CC: Uriah Robbins DATE OF SERVICE: 05/13/2020 INPATIENT PSYCHIATRIC EVALUATION ATTENDING PSYCHIATRIST: Uriah Hilton DO. BRAND MGR: Wilver Valente MD and his hospitalist team. REASON FOR ADMISSION: Failure to thrive, refractory anxiety, continued complaints of pain, and inability for his nursing facility management. HISTORY OF PRESENT ILLNESS: This is a 70-year-old male known to me from I believe 2 prior admissions, seen in Behavioral Health Unit at [facility]. He was brought from his nursing facility, which was one of the [facility] today. The patient complains of whole body pain, not as specific focus. He states this has been going on for months and states it feels like something has taken over his nervous system. The patient reported to the ED that he has had hematuria for the last 6 months as well, was told it was an infection, then recently told that he no longer had an infection, but still sees blood in his urine. On my examination today, the patient was seen in the Emergency Room 7 and then later in the hallway in the Emergency Room where he was moved. The patient states that he is having unbearable pain and does not appear in pain crisis. He is not tachypneic or diaphoretic. The patient complains of anxiety as well. I had a brief discussion with him that he is dealing with a neurodegenerative disorder and that will incubate a lot of physical deterioration, particularly strength endurance and ability to coordinate movement. The patient has had a 10-pound weight loss over the last 6 weeks with constant pain and panic attacks, napping frequently during the day and not sleeping at night. He is unable to do activities of daily living, which include bathing, dressing, feeding, grooming, transfers and ambulating. According to him, he lives with a licensed clinical social worker at [facility]. PAST PSYCHIATRIC HISTORY: Includes bipolar depression, major depression, major neurocognitive disorder. PAST MEDICAL HISTORY: Includes seizures, kidney stones, glaucoma, Parkinson's disease, atherosclerotic heart disease. He had a PEG placement in the past and [address] [address] HISTORY AND PHYSICAL Name: GEOFFREY GALLARDO Room #: 518B-B ADM IN M.R.#: [id number] Admission: 05/13/20 Attend Phys: Uriah Hilton DO Discharge: Date of : 50 Report #: [id number] it was removed. Also, recurrent UTIs. MEDICATIONS: Tramadol 50 mg oral 3 times a day p.r.n. for pain, fluoxetine 40 mg oral daily, lisinopril 10 mg oral daily, alprazolam 1.5 mg p.o. 3 times a day, acetaminophen, bisacodyl, rectal suppositories, ibuprofen, magnesium hydroxide. ALLERGIES: Numerous and include AMITRIPTYLINE, AMLODIPINE, AMOXICILLIN, BENZOCAINE, BUSPIRONE, CARBAMAZEPINE, CEFDINIR, CELECOXIB, CEPHALEXIN, CIPROFLOXACIN, CITALOPRAM, CLONAZEPAM, CLORAZEPATE, CONTRAST DYE, IODINE, CYCLOBENZAPRINE, DEXLANSOPRAZOLE, I BELIEVE THAT IS DEXILANT, DIAZEPAM, DICYCLOMINE, DEPAKOTE OR JUST VALPROIC ACID, DOXYCYCLINE, DULOXETINE, ESCITALOPRAM, ESOMEPRAZOLE, GABAPENTIN, HYDROCODONE, HYDROCORTISONE, HYDROXYZINE, LAMOTRIGINE, LEVOFLOXACIN, LIDOCAINE, LITHIUM, MELOXICAM, METHYLPREDNISOLONE, MILNACIPRAN, SUPPRESSED OXCARBAZEPINE, PHENOL, PREGABALIN, SULFAMETHOXAZOLE, TIZANIDINE, TRIMETHOPRIM AND VENLAFAXINE. SOCIAL HISTORY: Denied tobacco use. Has had alcohol in the past. No recreational drug use. REVIEW OF SYSTEMS: From the ER, CONSTITUTIONAL: Denies fever, pain, chills, malaise, unexplained weight change. EYES: Denies eye pain, visual change or discharge. HENT: Denies hearing changes, ear drainage, ear infections, ear pain, neck pain or neck stiffness. RESPIRATORY: Denies cough, shortness of breath, hemoptysis or respiratory distress. CARDIOVASCULAR: Denies chest pain, chest pain with exertion or edema. GASTROINTESTINAL: Denies nausea, vomiting or diarrhea. GENITOURINARY: Denies burning, frequency or dysuria. MUSCULOSKELETAL: Denies back pain, joint pain, muscle weakness. SKIN: Denies rash. NEUROLOGIC: Reports vague pain over body but especially legs . Denies headache, loss of consciousness. Did report to me he feels weak, although the ER reports he denied it. Weight is 61.24 kilos, BMI 20.5, height 172.72 cm. Physical exam is mostly normal and strength was not tested. Symmetric, 2+ pulses. LABORATORY DATA: Electrocardiogram done in the ER was as follows: On 05/13/2020, rate 81, VA interval 149 milliseconds, QT 378 milliseconds, QTc 439 milliseconds. He has a right bundle-branch block, in sinus rhythm. Laboratories done today showed a CBC: H and H 13.8 and 40.9, white count 6.0, platelet count 226. Chemistry: Sodium 143, potassium 3.7, chloride 104, bicarbonate 31, anion gap 8, BUN 14, creatinine 1.3, estimated GFR 74, glucose 100, calcium 9.9, total bilirubin 0.5, AST 15, ALT 70, alkaline phosphatase 95, total protein 7.7, albumin 4.0, TSH 0.647. Urinalysis had a number of positives [facility] [address] [place] [address] HISTORY AND PHYSICAL Name: GEOFFREY GALLARDO Room #: 518B-B ADM IN ..#: [id number] Admission: 05/13/20 Attend Phys: Uriah Hilton, Discharge: Date of : 50 Report #: [id number] including 3+ protein, trace ketones, 3+ blood, 2+ leukocyte esterase, numerous red blood cells. Bacteria count is moderate. Urine drug screen positive for benzodiazepines. COVID-19 antigen and PCR negative. PHYSICAL EXAMINATION: VITAL SIGNS: Today, temperature 36.6, pulse 72, respirations 18, BP 99/60, O2 sat 98%. MUSCULOSKELETAL: Frail, unkempt, thin male, lying on his left side in a stretcher with both knees bent at 45 degrees. MENTAL STATUS EXAMINATION: Attention and concentration fair to limited. Speech is normal, rhythm, tone. Thought process is linear and goal directed. Thought content, somatically focused. Also focused on anxiety. Some psychomotor agitation. No psychomotor retardation. The patient had ideations of not living and , but did not have laid out plan to harm himself. Denied plan to harm others. Denied auditory, visual, or tactile hallucinations. Memory not formally tested, known to be impaired. Insight impaired, judgment impaired. Fund of knowledge above average range. FORMULATION: A 70-year-old male sent out from nursing facility due to refractory anxiety, somatic preoccupation and failure to perform activities of daily living. PLAN: Admit the patient to Geriatric Psychiatry. Consult hospitalist to evaluate and stabilize. Regarding the patient's psychiatric medications, unfortunately the patient has a huge allergy list making selection difficult and I believe he has been taken off of what has been previously prescribed. At this point, we will utilize Ativan 1 mg q. 6 hours p.r.n. application for the next few days. We will need to see how he responds in the therapeutic milieu. STRENGTHS: He is insured. He has a decision maker that is his ex- Alesia. He has a placement. WEAKNESSES: Fairly significantly advanced dementia, poor coping skills. Dr. Alegre was covering for me last night and gave initial admission orders and I will try and dig a little more deeper information from the patient. Also, urine culture has been sent. <ELECTRONICALLY SIGNED> By: Uriah Hilton DO 05/15/20 1234 17 [id number] Uriah Hilton DO /nt
--- NOTE | 2020-05-15 17:18 | NUR ---
SW completed pt assessment and treatment plan.
[2020-05-15 20:13] VITALS: BP 119/76
--- NOTE | 2020-05-16 04:53 | NUR ---
Assumed care of pt @ 1900. Pt calm et cooperative this shift. Pt c/o high level of anxiety et was given Lorazepam 1mg PRN with HS meds. Took medications whole without difficulty. Ambulates with assistance of w/c. Independent with toileting. VSWNL. Health assessment with no abnormalities noted at present time. States passive SI with no plan. Denies HI/AVH at present time. Isolated in room most of shift. Currently resting in bed with eyes closed. Will continue to monitor per unit protocol.
[2020-05-16 09:40] VITALS: BP 123/81
[2020-05-16] MEDS ORDERED: SEROQUEL 25 MG25 M1 PO (10:35)
[2020-05-16] MEDS ORDERED: REMERON 30 MG T30 M1 PO (10:35)
[2020-05-16] MEDS ORDERED: CALTRATE-600 W1 EACH PO (10:36)
[2020-05-16] MEDS ORDERED: LORAZEPAM 1 MG T1 MG PO (10:36)
[2020-05-16] MEDS ORDERED: LACTULOSE20 GM/30 M PO (10:36)
[2020-05-16 10:58] LABS: ABSOLUTE NEUTROPHILS 5.4 thou/uL (1.4-8.2); BASOPHILS 0.4 % (0.0-2.0); EOSINOPHILS 1.6 % (0.0-3.0); HEMATOCRIT 40.6 % (42.0-52.0); HEMOGLOBIN 13.4 gm/dL (14.0-18.0); LYMPHOCYTES 20.5 % (24.0-44.0); MCH 30.5 pg (26.0-34.0); MCV 92.4 fL (80.0-100.0); MONOCYTES 5.9 % (1.0-8.0); PLATELET COUNT 220 thou/uL (150-400); POLYS 71.6 % (36.0-66.0); RBC 4.39 mil/uL (4.50-6.00); RDW 14.7 % (10.5-14.5); WBC 7.5 thou/uL (4.0-11.0)
[2020-05-16 11:06] LABS: CALCIUM 9.6 mg/dL (8.5-10.1); POTASSIUM 4.2 mmol/L (3.5-5.1)
--- NOTE | 2020-05-16 13:32 | NUR ---
SW faxed facesheet and transportation request for non-emergency transpotation. Ambulance will arrive at 1500 to transport patient to [facility].
--- NOTE | 2020-05-16 16:09 | NUR ---
REPORT CALLED TO DORIS AT [facility] AT APPROX. 1115-PT HAS BEEN ACCEPTED BY DR HANSON TO ROOM 311-TRANSFER FORM COMPLETED AND SIGNED BY PATIENT-EX LOUISE GALLARDO WHO IS IDENTIFIED DPOA CONTACTED VIA PHONE AND CONSENT TO TRANSFER REVIEWED WITH HER WELL INCLUDING RISKS/BENEFITS-SHE IS ALSO IN AGREEMENT WITH DISCHARGE FROM [facility] AND TRANSFER TO [facility] FOR UROLOGY PROCEDURE. PT REPORTING ANXIETY AT [facility]OX 1430 PRIOR TO DC-ATIVAN 1MG GIVEN PO PRN ALONG WITH SCHEDULED 1500 SEROQUEL-PT DENIES SI/SH AT THIS TIME STATES HE IS "HAPPY" THAT HE IS BEING TRANSFERED D/T REPORTED "WANTING TO GET THIS TAKEN CARE OF FOR AWHILE" DENIES COMPLAINTS/CONCEERNS AT 1500 WHICH IS WHEN AMBULANCE PERSONEL ARRIVES TO TRANSPORT TO [facility]. ABLE TO GET SELF UP ON STRETCHER AND IS ALERT AND ORIENTED AT TIME OF DC-PERSONAL BELONGINGS SENT. AFTER DEPARTURE FROM UNIT NOTED WC WAS IDENTIFIED HAVING BEEN BROUGHT WITH PATIENT TO HOSPITAL-ELDAWIFE [facility] CONTACTED AND IS REQUESTING THAT IT BE STORED HERE IN ANTICIPATION OF READMIT AFTER STENT REMOVAL. STATES PATIENT DOES NOT HAVE HIS OWN AND THAT IT MUST BELONG TO [facility].
--- NOTE | 2020-05-19 22:27 | D ---
[facility] [place] [address] DISCHARGE SUMMARY Name: GEOFFREY GALLARDO Room #: 518B-B DIS IN M.R.#: [id number] Admission: 05/13/20 Attend Phys: Uriah Hilton DO Discharge: 05/16/20 Date of : 50 Report #: [id number] THIS REPORT FOR: cc: Kristy Robbins MD,Uriah Topete MD, DO ~ CC: Uriah Robbins DATE OF SERVICE: 05/16/2020 INPATIENT PSYCHIATRIC DISCHARGE SUMMARY ATTENDING PSYCHIATRIST: Uriah Hilton DO. BUSHLER: Jeff Cortez MD DISCHARGE DIAGNOSES: Major depressive disorder, generalized anxiety disorder, major neurocognitive disorder, left-sided hydronephrosis secondary to likely encrusted ureteral stone and hematuria. Additional medical comorbidities; recurrent UTIs, generalized debility, deconditioning, history of constipation, hypertension; coronary artery disease, status post coronary artery bypass graft x 2; carotid endarterectomy, also substance use disorder for alcoholism at least moderate degree. The patient will be discharging to [facility] due to urologic urgency discovered during psychiatric admission. DISCHARGE MEDICATIONS: Are as follows: Mirtazapine 30 mg p.o. at bedtime, Seroquel 12.5 mg p.o. t.i.d., lorazepam 1 mg p.o. q. 6 hours p.r.n. anxiety and agitation, lactulose 20 grams p.o. daily, electrolytes for bowel motility, lorazepam for anxiety, Seroquel for anxiety; mirtazapine for depression, sleep, appetite; calcium carbonate 500 mg p.o. at bedtime for supplementation, Keppra 500 mg p.o. b.i.d. for seizure disorder, latanoprost 2.5 mL drops to left eye I believe 2 drops at bedtime for glaucoma, senna and docusate 2 tabs p.o. b.i.d. for bowel motility, constipation; cholecalciferol 5000 International Units daily, tramadol 1 tab p.o. t.i.d. p.r.n. for pain, fluoxetine 40 mg p.o. daily for depression, Lexapro 10 mg p.o. daily, and bisacodyl suppositories p.r.n. for constipation. Recommend avoiding alprazolam due to high rebound of anxiety. DISCHARGE LABORATORY DATA: CBC, BMP was done today, 05/16/2020; H and H 13.4 and 40.6, white count of 7.5, platelet count 220. Chemistries today; sodium 141, potassium 4.2, chloride 102, bicarbonate 34, anion gap 5, BUN 16, creatinine 1.0, estimated GFR 74, glucose 84, calcium 9.6. TSH 0.647. UDS done, 05/13/2020; was positive for benzos. Urinalysis done on showed 3+ protein, trace ketones, 3+ blood, 2+ leukocyte esterase, some erythrocytes, bacteria was noted at moderate; however, it was a negative culture, normal genitourinary herman. Mucous is light. COVID-19 PCR serology was negative on [address] [address] DISCHARGE SUMMARY Name: GEOFFREY GALLARDO Room #: 518B-B DIS IN M.R.#: [id number] Admission: 05/13/20 Attend Phys: Uriah Hilton, DO Discharge: 05/16/20 Date of : 50 Report #: [id number] admission and repeat on 05/15/2020 and on participation in the hospital transfer was negative. The patient does have placement at [facility] in a memory care. REASON FOR ADMISSION: Back on the 05/13/2020, this is a 70-year-old male sent to the ED for medical clearance from [facility]. He was complaining of abdominal pain, 10-pound weight loss over the last month or so, daily panic attacks, not sleeping at night. HOSPITAL COURSE: The patient was admitted to the Geriatric Psychiatry Unit. The patient was clearly quite anxious. Dr. Cortez elected to do a CT scan of the abdomen and pelvis; the patient had last one done here in end of 01/2020 and there was discovery of progression of left sided hydronephrosis for mild in end of 01/2020 to moderate now. There is placement of 1 stent that was apparently done in 11/2019, so there is suspicion of it leading to the damage to the kidney. I consulted with the patient's Alesia RESTREPO and discussed the seriousness of the matter that the stent should have been removed in 02/2020; also corresponded with Dr. Zavala the adult and pediatric neurologist that handles the patient at his nursing facility and he corroborated that the stent had not been removed and should have. The patient slept 10.6 hours the night before discharge. He will be going [facility] ambulance to [facility]. PHYSICAL EXAMINATION: VITAL SIGNS: On the day of discharge are as follows: Temperature 36.6, pulse 75, respirations 18, BP 123/81, O2 sat 99%. MUSCULOSKELETAL: Nonambulatory at this time, only using a wheelchair. MENTAL STATUS EXAMINATION: This is a well-developed, frail, ill-appearing male, unshaven. Attention fair. Concentration fair. Speech soft, normal rate. Thought process: Linear and goal oriented. Thought content, anxious, concerned about is happening next, discharge, possible surgery. Slight psychomotor agitation. No psychomotor retardation. Denied SI or HI. Denied auditory, visual or tactile hallucinations. Mood and affect were anxious, restricted, congruent. Insight and judgment is limited. Fund of knowledge is diminished. This patient's DPOA for healthcare is enacted. It is Alesia Gallardo, his ex-. She was confirmed about the transfer and consenting to it. Risks, benefits and alternatives were discussed. Prognosis: guarded <ELECTRONICALLY SIGNED> By: Uriah Hilton DO 05/19/20 [id number] Uriah Hilton DO /nt
== END 2020-05-16 15:22 | DRG 880 ==
LOC: ER 12:08 → EROBS 21:04 → SBH 21:04 → ER 21:04 → SBH 21:04 → EROBS 21:39 → SBH 21:39
PROVIDERS: Emergency Medicine; ADMIT Psychiatry & Neurology Psychiatry; ATTEND Psychiatry & Neurology Psychiatry
DX: F41.1 Generalized anxiety disorder (principal); F01.51 Vascular dementia, unspecified severity, with behavioral disturbance; F03.91 Unspecified dementia, unspecified severity, with behavioral disturbance; M48.54XA Collapsed vertebra, not elsewhere classified, thoracic region, initial encounter for fracture; K92.2 Gastrointestinal hemorrhage, unspecified; E46 Unspecified protein-calorie malnutrition; N13.6 Pyonephrosis; Z20.828 Contact with and (suspected) exposure to other viral communicable diseases; F31.9 Bipolar disorder, unspecified; G20 Parkinson's disease; I25.10 Atherosclerotic heart disease of native coronary artery without angina pectoris; R53.81 Other malaise; K59.09 Other constipation; I10 Essential (primary) hypertension; E78.5 Hyperlipidemia, unspecified; N40.0 Benign prostatic hyperplasia without lower urinary tract symptoms; Z87.442 Personal history of urinary calculi; Z79.899 Other long term (current) drug therapy; Z95.1 Presence of aortocoronary bypass graft; Z88.8 Allergy status to other drugs, medicaments and biological substances; Z68.20 Body mass index [BMI] 20.0-20.9, adult; Z28.21 Immunization not carried out because of patient refusal
CPT/HCPCS: 10880